=== PATIENT | female | born 1995 | race Caucasian/White ===

== ENCOUNTER 2021-01-25 18:40 | Emergency (ER) | payer MEDICAID, SELFPAY ==
[2021-01-25 18:41] VITALS: BP 123/82; PULSE 127; RESP 18; TEMP 37.4; O2SAT 100; BMI 20.5
--- NOTE | 2021-01-25 20:12 | EDS_ITS ---
HPI History of Present Illness Chief Complaint: Substance Abuse Detail of Chief Complaint: Requesting detox from methamphetamines Informant: patient Narrative Narrative: To the emergency department requesting detox from methamphetamines. Patient states she last used yesterday. Patient states that she also has used heroin in the past but not for the last month. Today she complains of diarrhea and feeling very anxious. Patient denies feeling suicidal. Patient states that she has contacted 180 however she feels that she needs inpatient detox. Patient also states there is a possibility she could be because her control is and has not had a period in 2 months. She has not taken a home test. Patient states she is been using methamphetamines since 2012. Patient typically smokes methamphetamines but does not use IV drugs. Prior similar symptoms: Yes PFSH [facility] Medical History (Updated 01/25/21 @ 21:[address] Thao Pavon, DO) Anxiety Hypoglycemia Manic depression Home Medications ibuprofen 600 mg PO Q6H PRN PRN #30 tablet 11/20/15 [Rx Last Taken Unknown] oxycodone 5 - 10 mg PO Q4H PRN PRN #14 tablet 11/20/15 [Rx Last Taken Unknown] docusate sodium [Colace] 100 mg PO BID #60 capsule 11/22/15 [Rx Last Taken Unknown] Allergy/AdvReac Type Severity Reaction Status Date / Time asparagus Allergy Hives Verified 01/25/21 18:41 avocado Allergy Hives Verified 01/25/21 18:41 Bleach (Sodium Hypochlorite) Allergy Hives Verified 01/25/21 18:41 gregorio Allergy Hives Verified 01/25/21 18:41 Social History Smoking Status: Current every day smoker tobacco type: cigarettes ROS ROS ED Constitutional Constitutional ED: Reports systems reviewed and no addt'l complaints, except as documented; Denies body ache(s), change in weight or chills Eyes Eyes: Denies acute decrease in peripheral vision, change in vision, double vision or loss of vision ENT ENT ED: Reports none; Denies ear pain, lip swelling, loss taste/smell, neck pain, otalgia or sore throat Cardiovascular Cardiovascular: Reports none; Denies abdominal pain, chest pain with activity, leg edema, lightheadedness, palpitations, rapid heart rate or syncope Respiratory/Chest Respiratory/Chest: Reports none; Denies change in mental status, dry cough, dyspnea, hemoptysis, shortness of breath at rest or shortness of breath with exertion Gastrointestinal Gastrointestinal: Reports none and diarrhea; Denies abdominal pain, change in stool character, hematemesis, hematochezia, melena, rectal bleeding or vomiting Genitourinary Genitourinary ED: Reports none; Denies abdominal discomfort, anuria, dysuria, genital pain or polyuria Musculoskeletal Musculoskeletal: Reports none; Denies arthralgias, back pain, difficulty walking, extremity pain, muscle weakness or myalgias Integumentary Reports none; Denies abscess or rash Neurologic Neurologic: Reports none; Denies abnormal gait, confusion, focal weakness, frequent falls, headache(s), loss of vision, numbness, paresthesias, radicular pain, vertigo or weakness Psychiatric Psychiatric: Reports systems reviewed and no addt'l complaints, except as documented, none and anxiety; Denies behavioral changes, confusion, difficulty concentrating, hallucinations, suicidal ideation, tactile hallucinations or visual hallucinations Endocrine Endocrinology: Denies none, cold intolerance, excessive sweating, fatigue or heat intolerance Hematologic/Lymphatic Hematologic/Lymphatic: Reports none; Denies anemia, easy bleeding or easy bruising Allergic/Immunologic Allergic/Immunologic ED: Denies as per HPI, none, lip swelling, mouth swelling, throat swelling, tongue swelling or hives EXAM Physical Exam Const Vital Signs: 01/25/21 18:41 Temperature 99.4 F H Temperature Source Temporal Pulse Rate 127 H Respiratory Rate 18 Blood Pressure 123/82 H Blood Pressure Mean 95 Pulse Ox 100 Oxygen Delivery Method Room Air Positive well nourished and well developed General Appearance ED: well developed and NAD HEENT Reports TM's clear and moist mucous membranes normocephalic and atraumatic; Negative for trauma or tenderness Tympanic Membrane ED: Yes TM's clear Eyes PERRL and EOMs intact bilaterally General Eye ED: Negative for pale conjunctiva or scleral icterus Neck no lymphadenopathy, supple and no JVD General: Negative for tenderness Chest Wall inspection of chest normal and palpation of chest normal Chest: Negative for tenderness Resp normal respiratory effort and clear to auscultation bilaterally Effort and Inspection: Negative for respiratory distress or pain with movement Auscultation: Negative for rhonchi, wheezes or diminished lung sounds Cardio regular rate, regular rhythm, S1 normal heart sound, S2 normal heart sound and no murmurs Peripheral Pulses: pulses 2+ throughout GI normal to inspection, nondistended, normoactive bowel sounds, soft to palpation, non-tender, non-distended and no masses Back/Spine no CVA tenderness and no thoracic nor lumbar tenderness Extremity normal to inspection General Extremety ED: Negative for edema General Extremity: Negative for edema Neuro oriented x3, CN's II-XII intact bilaterally, no sensory deficits noted and gait normal Sensorium / Orientation: awake, alert, oriented to person, oriented to place and oriented to time Motor Exam: strength 5/5 throughout and strength abnormal Psych mental status grossly normal Skin no rashes or lesions noted and no wounds MDM MDM MDM Narrative Medical decision making narrative: Patient positive for amphetamines on tox screen. She is not . I explained to her that we do not offer inpatient detox for amphetamines and she will need to go through [facility]. Patient will be discharged to home and advised to follow-up as an outpatient with [facility]. Lab Data Attestation: I reviewed the patient's lab results. Labs: Laboratory Results - last 24 hr 01/25/21 01/25/21 01/25/21 20:23 20:35 20:35 WBC 8.2 RBC 4.42 Hgb 13.9 Hct 42.9 MCV 97.1 MCH 31.4 MCHC 32.4 RDW Std Deviation 42.9 RDW Coeff of Reva 11.9 Plt Count 264 MPV 10.5 Immature Gran % (Auto) 0.100 Neut % (Auto) 60.8 Lymph % (Auto) 31.0 Wilson % (Auto) 5.4 Eos % (Auto) 2.0 Baso % (Auto) 0.7 Absolute Neuts (auto) 5.0 Absolute Lymphs (auto) 2.53 Nucleated RBC % 0 Sodium 141 Potassium 3.9 Chloride 108 H Carbon Dioxide 31.0 Anion Gap 2 L BUN 8 Creatinine 0.90 Estim Creat Clear Calc 88.34 Est GFR (MDRD) Af Amer 96 Est GFR (MDRD) Non-Af 80 BUN/Creatinine Ratio 8.9 L Glucose 78 Calcium 8.8 Serum , Qual Urine Opiates Screen NEGATIVE Urine Methadone Screen NEGATIVE Ur Barbiturates Screen NEGATIVE Ur Phencyclidine Scrn NEGATIVE Ur Amphetamines Screen POSITIVE H U Methamphetamin-MDMA POSITIVE H U Benzodiazepines Scrn NEGATIVE Urine Cocaine Screen NEGATIVE U Cannabinoids Screen NEGATIVE Ur Drug Screen Comment Ethyl Alcohol 09/08/21 09/08/21 20:35 20:35 WBC RBC Hgb Hct MCV MCH MCHC RDW Std Deviation RDW Coeff of Reva Plt Count MPV Immature Gran % (Auto) Neut % (Auto) Lymph % (Auto) Wilson % (Auto) Eos % (Auto) Baso % (Auto) Absolute Neuts (auto) Absolute Lymphs (auto) Nucleated RBC % Sodium Potassium Chloride Carbon Dioxide Anion Gap BUN Creatinine Estim Creat Clear Calc Est GFR (MDRD) Af Amer Est GFR (MDRD) Non-Af BUN/Creatinine Ratio Glucose Calcium Serum , Qual NEGATIVE Urine Opiates Screen Urine Methadone Screen Ur Barbiturates Screen Ur Phencyclidine Scrn Ur Amphetamines Screen U Methamphetamin-MDMA U Benzodiazepines Scrn Urine Cocaine Screen U Cannabinoids Screen Ur Drug Screen Comment Ethyl Alcohol < 3.0 Discharge Plan Triage Chief Complaint: Substance Abuse ED Provider: Thao Pavon Dx/Rx/DC Orders Clinical Impression: Methamphetamine abuse Instructions: Understanding Methamphetamine ..., ED Drug Abuse Prescriptions: No Action oxycodone 5 MG tablet 5 - 10 mg PO Q4H PRN PRN (Reason: Moderate Pain (4-5/10)) Qty: 14 RF: 0 ibuprofen 600 MG tablet 600 mg PO Q6H PRN PRN (Reason: pain or cramping) Qty: 30 RF: 1 docusate sodium [DOK] 100 MG capsule 100 mg PO BID Qty: 60 RF: 0 Primary Care Provider: Care Physician,No Primary Referrals: Care Physician,No Primary [Primary Care Provider] - [facility] [STAFF PHYSICIAN] - 1 Day Disposition Disposition: Home, Self Care
[2021-01-25 20:54] LABS: Absolute Lymphocyte Count 2.53 X10^3/uL (0.83-4.51); Basophil# 0.06 X10^3/uL; Basophil% 0.7 % (0-1); Eosinophil# 0.16 X10^3/uL; Hematocrit 42.9 % (37-47); Hemoglobin 13.9 g/dL (12.0-15.0); Lymphocyte # 2.53 X10^3/ul (0.83-4.51); Mean Corp Hgb Conc 32.4 g/dL (32-36); Mean Corpuscular Hgb 31.4 pg (27.0-32.0); Mean Corpuscular Volume 97.1 fL (81-99); Mean Platelet Vol. 10.5 fl (6.2-12.0); Monocyte# 0.44 X10^3/uL; Monocyte% 5.4 % (0-10); NRBC Flagged by Analyzer 0 % (0-5); Neutrophil # 4.95 X10^3/uL (2.7-7.7); Neutrophil % 60.8 % (47-70); Platelet Count 264 K/mm3 (150-450); RBC Distribution Width CV 11.9 % (11.6-14.6); RBC Distribution Width SD 42.9 fl (35.1-43.9); Red Blood Count 4.42 M/mm3 (4.2-5.4); White Blood Count 8.2 K/mm3 (4.4-11.0)
[2021-01-25 21:06] LABS: Internal QC Validated? YES +Cl - CLEAR BKGD; Pregnancy, Serum, hCG Quali. NEGATIVE Negative
[2021-01-25 21:10] LABS: Alcohol, Blood (Medical)-Serum < 3.0 mg/dL
[2021-01-25 21:12] LABS: Anion Gap 2 (5-15); BUN 8 mg/dL (7-18); BUN/Creat Ratio 8.9 RATIO (10-20); Calcium,Total 8.8 mg/dL (8.5-10.1); Chloride 108 mmol/L (98-107); EST Glomerular Filtration Rate 80 mL/min (>60); Est Glom Filt Rate - Afr Amer 96 mL/min (>60); Estimated Creatinine Clearance 88.34 ml/min; Glucose 78 mg/dL (74-106); Potassium 3.9 mmol/L (3.5-5.1); Sodium Level 141 mmol/L (136-145)
[2021-01-25 21:14] LABS: Amphetamine Urine VISTA POSITIVE (<1000 ng/mL); Barbiturate Urine VISTA NEGATIVE (< 200 ng/mL); Benzodiazepine Urine VISTA NEGATIVE (< 200 ng/mL); Cocaine Urine VISTA NEGATIVE (< 300 ng/mL); Ecstacy Urine VISTA POSITIVE (< 500 ng/mL); Methadone Urine VISTA NEGATIVE (< 300 ng/mL); PCP Urine VISTA NEGATIVE (< 25 ng/mL); THC Urine VISTA NEGATIVE (< 50 ng/mL); Vista UDS pH Range 6
== END 2021-01-25 21:35 | disposition home or self-care (01) ==
PROVIDERS: Emergency Provider Emergency Medicine
DX: F15.10 Other stimulant abuse, uncomplicated (principal); F17.210 Nicotine dependence, cigarettes, uncomplicated
CPT/HCPCS: 80048; 80307; 82077; 84703; 85025; 99282

== ENCOUNTER → 2021-03-21 | Outpatient (CLI) | payer MEDICAID, SELFPAY ==
[2021-03-28 16:26] LABS: HPV Reflexed? NOT INDICATED
== END | disposition home or self-care (01) ==
LOC: LABSPEC 13:48
PROVIDERS: Visit Provider Obstetrics & Gynecology
DX: Z12.4 Encounter for screening for malignant neoplasm of cervix (principal)
CPT/HCPCS: 88175; G0145

== ENCOUNTER → 2021-05-04 | Outpatient (CLI) | payer MEDICAID, SELFPAY ==
--- NOTE | 2021-05-04 | IMM_PTH ---
PATIENT: BOO VOGEL LOC: [facility] U#:[id number] AGE/SX: 25/F ROOM: RE05/04/[address]: Dr. Mayur Edward MD : 1995 BED: DIS: 05/04/2021 SPEC #: [id number] RECD: 05/08/21 14:45 STATUS: RALPH REQ #: [id number] STELLA: 05/04/21 00:[address]: Mayur Edward DEPT: IMMUNOHISTOCHEMISTRY RECD BY: Lyubov Bradley ENTERED: 05/08/21 14:46 SP TYPE: IMMUNO OT DR: No Primary Care Phys Tissues: A - Uterine cervix, NOS Procedures: p16 (initial) KI-67 (add) PHYSICIAN & INSTITUTION [place] [id number] SPECIMEN INFORMATION: Tissue Source: A ? Cervix, biopsy Clinical Info: LGSIL, mild dysplasia Specimen Number: [id number] CPT code: 46136, 93518 METHODOLOGY: Deparaffinized sections of prefer/formalin-fixed tissue or PAP/DQ stained slides are incubated with monoclonal/polyclonal antibodies/oligonucleotide probes. Localization is made via biotin free immunoperoxidase method. Appropriate controls are performed and reacted as expected. Results on target cell population are indicated in the following table: RESULTS: ANTIBODY / CLONE RESULT Block A P16 (E6H4) positive, focal, patchy Ki-67 (30-9) positive, low These tests were developed and their performance characteristics determined by [facility]. They may not have been cleared or approved by the U.S. Food and Drug Administration. The FDA has determined that such clearance or approval is not necessary. The above immunohistochemical/dualISH markers are ordered and reviewed by the Pathologist. INTERPRETATION: A. Cervix, biopsy: Consistent with focal HPV change. AM:checo 05/09/2021
--- NOTE | 2021-05-04 | CER_PTH ---
PATIENT: BOO VOGEL [facility]: [facility] U#:[id number] AGE/SX: 25/F ROOM: RE05/04/[address]: Dr. Mayur Edward MD : 1995 BED: DIS: 05/04/2021 SPEC #: [id number] RECD: 05/05/21 10:21 STATUS: RALPH REDarrin #: [id number] STELLA: 05/04/21 00:[address]: Mayur Edward DEPT: SURGICAL PATHOLOGY RECD BY: Arsalan Mata ENTERED: 05/05/21 10:21 SP TYPE: CERV OT DR: No Primary Care Phys Tissues: A - Uterine cervix, NOS B - Endocervical Procedures: Surgery Specimen Level IV HEADER OPERATION: Colposcopy PRE-OP DIAGNOSIS: LGSIL, mild dysplasia TISSUE SUBMITTED: A ? Cervical biopsy 1, 5, 7, 11 o?clock, B - ECC MICROSCOPIC DIAGNOSIS A. Cervix, biopsy: Focal HPV change suspected. See comment. BJean-Pierre Endocervix, curettings: Scant strips of benign superficial endocervix with squamous metaplasia and mild chronic inflammation. No evidence of dysplasia. AM:checo 05/08/2021 COMMENT A. Results from immunohistochemistry ([id number]) for surrogate HPV marker (p16) will be reported separately. MICROSCOPIC DESCRIPTION Slides are reviewed. GROSS DESCRIPTION A - Received in fixative is one container labeled with the patient's name and designated cervical biopsy. The specimen consists of multiple irregular fragments of light lozano soft tissue that in aggregate measure 1 x 0.5 x <0.1 cm. The specimen is totally submitted in one cassette. B - Received in fixative is one container labeled with the patient's name and designated ECC. The specimen consists of light lozano mucoid material aggregating to 1 x 1 x <0.1 cm. The specimen is totally submitted in one cassette. / AM:checo 05/05/21 TC:5 CPT: 48262 x2
== END | disposition home or self-care (01) ==
LOC: LABSPEC 11:51
PROVIDERS: Visit Provider Obstetrics & Gynecology
DX: N87.0 Mild cervical dysplasia (principal)
CPT/HCPCS: 88305; 88341; 88342

== ENCOUNTER 2021-06-21 14:57 | Emergency (ER) | payer MEDICAID, SELFPAY ==
[2021-06-21 14:58] VITALS: BP 106/73; PULSE 118; RESP 16; TEMP 38.1; O2SAT 97; BMI 21.4
[2021-06-21 15:04] VITALS: BP 106/73; PULSE 124; RESP 16; TEMP 38.2; O2SAT 98
--- NOTE | 2021-06-21 15:08 | CT_ITS ---
STUDY: CT ABDOMEN AND PELVIS WITHOUT CONTRAST REASON FOR EXAM: Female, 25 years old. Pain RADIATION DOSAGE (If Supplied By Facility): CTDIvol = ( 6.04 ) mGy, DLP = ( 305.04 ) mGycm TECHNIQUE: Transaxial images were obtained from the dome of the diaphragm to the symphysis pubis without oral contrast, and without intravenous contrast. Sagittal and coronal images were reconstructed. Individualized dose optimization techniques were used for this CT. COMPARISON: None. FINDINGS: Reticulonodular interstitial thickening in both lower lobes.. The visualized portions of the heart are within normal limits. Normal liver. Contracted thick-walled gallbladder without calcified stones possibly physiologic. If concern for gallbladder disease ultrasound recommended Normal spleen. Normal pancreas. Normal bilateral adrenal glands. Normal right kidney. Normal left kidney. Normal visualized stomach. Nonspecific ileus with diffuse fecal retention in colon. No evidence for small bowel obstruction.. No evidence for acute appendicitis. Normal abdominal aorta. Normal inferior vena cava. Normal retroperitoneum. Normal urinary bladder. Normal abdominal wall. Normal osseous structures. CT/Abdomen/Pelvis without Cont IMPRESSION: Nonspecific ileus with diffuse fecal retention in colon. Contracted thick-walled gallbladder without calcified stones likely physiologic. If concern for gallbladder disease ultrasound recommended. Electronically Signed: Hawk Carreno MD at 16:32 EST ,
--- NOTE | 2021-06-21 15:09 | EX.ED.DYSGE1 ---
HPI History of Present Illness Chief Complaint: Abd Pain Detail of Chief Complaint: Right flank pain that started 3 days ago Informant: patient Onset/Context/Timing Current Severity: 02/26 Narrative Narrative: Patient presents to the emergency department complaint of right\flank pain that started 3 days ago. Pain became more severe yesterday. Patient's had a low-grade temp subjectively at home. She denies dysuria, urgency, or frequency. She is never had pain like this before. Patient states that she was supposed to have a menstrual period at the end of last month but has not had one yet. She has not taken home test. She denies abnormal vaginal bleeding. She denies any trauma to her back. Patient denies illicit drug use. Currently rates her pain out of 10 and presented via EMS. Prior similar symptoms: No PFSH PFSH Medical History (Updated 06/21/21 @ 18:[address] Thao Pavon, ) Anxiety Hypoglycemia Manic depression Home Medications ibuprofen 600 mg PO Q6H PRN PRN #30 tablet 11/20/15 [Rx Last Taken Unknown] oxycodone 5 - 10 mg PO Q4H PRN PRN #14 tablet 11/20/15 [Rx Last Taken Unknown] docusate sodium [Colace] 100 mg PO BID #60 capsule 11/22/15 [Rx Last Taken Unknown] Allergy/AdvReac Type Severity Reaction Status Date / Time acetaminophen [From Vicodin] Allergy NEEDS Verified 06/21/21 15:09 FOLLOW-UP asparagus Allergy Hives Verified 01/25/21 18:41 avocado Allergy Hives Verified 01/25/21 18:41 Bleach (Sodium Hypochlorite) Allergy Hives Verified 01/25/21 18:41 hydrocodone [From Vicodin] Allergy NEEDS Verified 06/21/21 15:09 FOLLOW-UP gregorio Allergy Hives Verified 01/25/21 18:41 Social History Smoking Status: Current every day smoker tobacco type: cigarettes ROS ROS ED Constitutional Constitutional ED: Reports systems reviewed and no addt'l complaints, except as documented; Denies body ache(s), change in weight or chills Eyes Eyes: Denies acute decrease in peripheral vision, change in vision, double vision or loss of vision ENT ENT ED: Reports none; Denies ear pain, lip swelling, loss taste/smell, neck pain, otalgia or sore throat Cardiovascular Cardiovascular: Reports none; Denies abdominal pain, chest pain with activity, leg edema, lightheadedness, palpitations, rapid heart rate or syncope Respiratory/Chest Respiratory/Chest: Reports none; Denies change in mental status, dry cough, dyspnea, hemoptysis, shortness of breath at rest or shortness of breath with exertion Gastrointestinal Gastrointestinal: Reports none, nausea and vomiting; Denies abdominal pain, change in stool character, diarrhea, hematemesis, hematochezia, melena or rectal bleeding Genitourinary Genitourinary ED: Reports none; Denies abdominal discomfort, anuria, dysuria, genital pain or polyuria Musculoskeletal Musculoskeletal: Reports none and back pain; Denies arthralgias, difficulty walking, extremity pain, muscle weakness or myalgias Integumentary Reports none; Denies abscess or rash Neurologic Neurologic: Reports none; Denies abnormal gait, confusion, focal weakness, frequent falls, headache(s), loss of vision, numbness, paresthesias, radicular pain, vertigo or weakness Psychiatric Psychiatric: Reports systems reviewed and no addt'l complaints, except as documented and none; Denies behavioral changes, confusion, difficulty concentrating, hallucinations, suicidal ideation, tactile hallucinations or visual hallucinations Endocrine Endocrinology: Denies none, cold intolerance, excessive sweating, fatigue or heat intolerance Hematologic/Lymphatic Hematologic/Lymphatic: Reports none; Denies anemia, easy bleeding or easy bruising Allergic/Immunologic Allergic/Immunologic ED: Denies as per HPI, none, lip swelling, mouth swelling, throat swelling, tongue swelling or hives EXAM Physical Exam Narrative Exam Narrative: Patient writhing around in bed and discomfort. Patient appears quite uncomfortable. Const Vital Signs: 06/21/21 14:58 06/21/21 15:04 06/21/21 17:27 Temperature 100.6 F H 100.8 F H Temperature Source Temporal Temporal Pulse Rate 118 H 124 H 88 Respiratory Rate 16 16 16 Blood Pressure 106/73 106/73 107/73 Blood Pressure Mean 84 84 84 Pulse Ox 97 98 99 Oxygen Delivery Method Room Air Nasal Cannula Room Air 06/21/21 18:33 Temperature Temperature Source Pulse Rate 78 Respiratory Rate 16 Blood Pressure 186/71 H Blood Pressure Mean 109 Pulse Ox 99 Oxygen Delivery Method Room Air Positive well nourished and well developed General Appearance ED: well developed and NAD HEENT Reports TM's clear and moist mucous membranes normocephalic and atraumatic; Negative for trauma or tenderness Tympanic Membrane ED: Yes TM's clear Eyes PERRL and EOMs intact bilaterally General Eye ED: Negative for pale conjunctiva or scleral icterus Neck no lymphadenopathy, supple and no JVD General: Negative for tenderness Chest Wall inspection of chest normal and palpation of chest normal Chest: Negative for tenderness Resp normal respiratory effort and clear to auscultation bilaterally Effort and Inspection: Negative for respiratory distress or pain with movement Auscultation: Negative for rhonchi, wheezes or diminished lung sounds Cardio regular rate, regular rhythm, S1 normal heart sound, S2 normal heart sound and no murmurs Peripheral Pulses: pulses 2+ throughout GI soft to palpation, non-tender, non-distended and no masses GI Narrative: Patient has tenderness to palpation over the right lower quadrant and right lower pelvis with some guarding. There is no rebound, rigidity, or peritoneal signs. Back/Spine no thoracic nor lumbar tenderness Back/Spine Narrative: Patient was CVA tenderness on the right. Extremity normal to inspection General Extremety ED: Negative for edema General Extremity: Negative for edema Neuro oriented x3, CN's II-XII intact bilaterally, no sensory deficits noted and gait normal Sensorium / Orientation: awake, alert, oriented to person, oriented to place and oriented to time Motor Exam: strength 5/5 throughout and strength abnormal Psych mental status grossly normal Skin no rashes or lesions noted and no wounds MDM MDM MDM Narrative Medical decision making narrative: IV line established on arrival. Patient was given Toradol for pain. Patient lab work was unremarkable. She was positive for COVID-19. hCG was negative. CT scan of the abdomen pelvis was unremarkable without evidence of kidney stones or appendicitis. Toxicology screen positive for amphetamines and methamphetamines as well as marijuana. Patient advised to quarantine for 10 days from symptom onset. Patient advised to return if increasing shortness of breath or conditions worsen anyway. Patient to use ibuprofen or Tylenol for discomfort. Lab Data Attestation: I reviewed the patient's lab results. Labs: Laboratory Results - last 24 hr 06/21/21 06/21/21 06/21/21 15:05 15:05 15:05 WBC 3.7 L RBC 4.31 Hgb 13.7 Hct 40.2 MCV 93.3 MCH 31.8 MCHC 34.1 RDW Std Deviation 41.4 RDW Coeff of Reva 11.9 Plt Count 211 MPV 10.3 Immature Gran % (Auto) 0.500 Neut % (Auto) 62.0 Lymph % (Auto) 17.8 L [place] % (Auto) 18.6 H Eos % (Auto) 0.8 Baso % (Auto) 0.3 Absolute Neuts (auto) 2.3 Absolute Lymphs (auto) 0.65 L Nucleated RBC % 0 Sodium 135 L Potassium 3.8 Chloride 102 Carbon Dioxide 26.0 Anion Gap 7 BUN 9 Creatinine 0.92 Estim Creat Clear Calc 89.32 Est GFR (MDRD) Af Amer 94 Est GFR (MDRD) Non-Af 77 BUN/Creatinine Ratio 9.8 L Glucose 108 H Lactic Acid Calcium 8.6 Total Bilirubin 0.30 AST 14 L ALT 19 Alkaline Phosphatase 54 Total Protein 7.4 Albumin 3.4 Globulin 4.0 Albumin/Globulin Ratio 0.8 L Serum , Qual NEGATIVE Urine Color Urine Clarity Urine pH Ur Specific [place] Urine Protein Urine Glucose (UA) Urine Ketones Urine Occult Blood Urine Nitrite Urine Bilirubin Urine Urobilinogen Ur Leukocyte Esterase Urine RBC Urine WBC Ur Squamous Epith Cells Amorphous Sediment Urine Bacteria Hyaline Casts Urine Mucus Urine Opiates Screen Urine Methadone Screen Ur Barbiturates Screen Ur Phencyclidine Scrn Ur Amphetamines Screen U Methamphetamin-MDMA U Benzodiazepines Scrn Urine Cocaine Screen U Cannabinoids Screen Ur Drug Screen Comment 06/21/21 06/21/21 06/21/21 15:40 16:45 16:45 WBC RBC Hgb Hct MCV MCH MCHC RDW Std Deviation RDW Coeff of Reva Plt Count MPV Immature Gran % (Auto) Neut % (Auto) Lymph % (Auto) [place] % (Auto) Eos % (Auto) Baso % (Auto) Absolute Neuts (auto) Absolute Lymphs (auto) Nucleated RBC % Sodium Potassium Chloride Carbon Dioxide Anion Gap BUN Creatinine Estim Creat Clear Calc Est GFR (MDRD) Af Amer Est GFR (MDRD) Non-Af BUN/Creatinine Ratio Glucose Lactic Acid 1.3 Calcium Total Bilirubin AST ALT Alkaline Phosphatase Total Protein Albumin Globulin Albumin/Globulin Ratio Serum , Qual Urine Color Yellow Urine Clarity Sl Cldy Urine pH 5.0 Ur Specific [place] 1.030 Urine Protein 15 H Urine Glucose (UA) NEGATIVE Urine Ketones 5 H Urine Occult Blood 10 H Urine Nitrite Negative Urine Bilirubin Negative Urine Urobilinogen Normal Ur Leukocyte Esterase 25 H Urine RBC 0 SEEN Urine WBC 0 SEEN Ur Squamous Epith Cells 0-5 SEEN Amorphous Sediment 1+ URATE Urine Bacteria 0 SEEN Hyaline Casts 0-5 SEEN Urine Mucus RARE Urine Opiates Screen NEGATIVE Urine Methadone Screen NEGATIVE Ur Barbiturates Screen NEGATIVE Ur Phencyclidine Scrn NEGATIVE Ur Amphetamines Screen POSITIVE H U Methamphetamin-MDMA POSITIVE H U Benzodiazepines Scrn NEGATIVE Urine Cocaine Screen NEGATIVE U Cannabinoids Screen POSITIVE H Ur Drug Screen Comment Radiography Diagnostic Testing: Clinical Impression(s) from Imaging Studies Abdomen/Pelvis CT 06/21/21 15:08 IMPRESSION: Nonspecific ileus with diffuse fecal retention in colon. Contracted thick-walled gallbladder without calcified stones likely physiologic. If concern for gallbladder disease ultrasound recommended. Electronically Signed: Hawk Carreno MD at 16:32 EST Reading Location ID and State: [address] [place] [address] , Service support , Discharge Plan Triage Chief Complaint: Abd Pain ED Provider: Thao Pavon Dx/Rx/DC Orders Clinical Impression: Back pain, COVID-19 Instructions: ED Back Pain (Acute or Chronic), Caring for Someone Who Has COVID-19 Prescriptions: No Action oxycodone 5 MG tablet 5 - 10 mg PO Q4H PRN PRN (Reason: Moderate Pain (4-5/10)) Qty: 14 RF: 0 ibuprofen 600 MG tablet 600 mg PO Q6H PRN PRN (Reason: pain or cramping) Qty: 30 RF: 1 docusate sodium [DOK] 100 MG capsule 100 mg PO BID Qty: 60 RF: 0 Primary Care Provider: Care Physician,No Primary Referrals: Sanket Rhoades MD [STAFF PHYSICIAN] - 5-7 Days Care Physician,No Primary [Primary Care Provider] - Disposition Disposition: Home, Self Care
[2021-06-21 15:16] LABS: Absolute Lymphocyte Count 0.65 X10^3/uL (0.83-4.51); Absolute Neutrophil Count 2.3 X10^3/uL (2.0-7.7); Basophil# 0.01 X10^3/uL; Basophil% 0.3 % (0-1); Eosinophil# 0.03 X10^3/uL; Eosinophils% 0.8 % (0-5); Hematocrit 40.2 % (37-47); Hemoglobin 13.7 g/dL (12.0-15.0); Lymphocyte # 0.65 X10^3/ul (0.83-4.51); Lymphocyte % 17.8 % (19-41); Mean Corp Hgb Conc 34.1 g/dL (32-36); Mean Corpuscular Hgb 31.8 pg (27.0-32.0); Mean Corpuscular Volume 93.3 fL (81-99); Mean Platelet Vol. 10.3 fl (6.2-12.0); Monocyte# 0.68 X10^3/uL; Monocyte% 18.6 % (0-10); NRBC Flagged by Analyzer 0 % (0-5); Neutrophil # 2.27 X10^3/uL (2.7-7.7); Platelet Count 211 K/mm3 (150-450); RBC Distribution Width CV 11.9 % (11.6-14.6); RBC Distribution Width SD 41.4 fl (35.1-43.9); Red Blood Count 4.31 M/mm3 (4.2-5.4); White Blood Count 3.7 K/mm3 (4.4-11.0)
[2021-06-21] MEDS: 0.9% Normal Saline 1,000 ML 125 ML IV (15:20)
[2021-06-21] MEDS: Ketorolac 15 MG/ML Vial IV (15:21)
[2021-06-21] MEDS: Ondansetron 4 MG/2 ML Vial IV (15:21)
[2021-06-21 15:32] LABS: ALB/GLOB Ratio 0.8 RATIO (0.9-2.4); AST(SGOT) 14 U/L (15-37); Alanine Aminotransfer ALT/SGPT 19 U/L (13-56); Albumin, Serum 3.4 g/dL (3.2-5.0); Alkaline Phosphatase 54 U/L (45-117); Anion Gap 7 (5-15); BUN 9 mg/dL (7-18); BUN/Creat Ratio 9.8 RATIO (10-20); Calcium,Total 8.6 mg/dL (8.5-10.1); Chloride 102 mmol/L (98-107); Creatinine, Serum 0.92 mg/dL (0.55-1.02); EST Glomerular Filtration Rate 77 mL/min (>60); Est Glom Filt Rate - Afr Amer 94 mL/min (>60); Estimated Creatinine Clearance 89.32 ml/min; Glucose 108 mg/dL (74-106); Potassium 3.8 mmol/L (3.5-5.1); Protein, Total 7.4 g/dL (6.4-8.2); Sodium Level 135 mmol/L (136-145)
[2021-06-21 16:05] LABS: Internal QC Validated? YES +Cl - CLEAR BKGD; Pregnancy, Serum, hCG Quali. NEGATIVE Negative
[2021-06-21 16:28] LABS: Lactic Acid 1.3 mmol/L (0.4-1.9)
--- NOTE | 2021-06-21 16:45 | ED.RN ---
AT 1635, VINCENT RN AT BEDSIDE TO ASK PT FOR A URINE SAMPLE. PT MINIMALLY RESPONSIVE, DOES NOT RESPOND TO VERBAL CALLING OR RUBBING ARMS. RESPIRES EVEN AND UNLABORED. PT DOES NOT RESPOND WITH ALCOHOL SWAB PLACED IN FRONT OF NOSE. PT STERNAL RUBBED. EYES FLUTTER OPEN AND THEN PT RETURNS TO SLEEPING. PT STERNAL RUBBED AGAIN. PT AWAKE REPORTS, DON'T FUCKING DO THAT, THAT HURTS. THIS RN EDUCATING PT THAT SHE WAS NOT RESPONDING TO TOUCH OR VERBAL COMMANDS. PT NOW A+OX4. AMBULATES TO BATHROOM FOR URINE SAMPLE.
[2021-06-21 16:50] LABS: Bacteria 0 SEEN /hpf (None Seen); Red Blood Cells-Urine 0 SEEN /hpf (0-5); White Blood Cells 0 SEEN /hpf (0-5)
[2021-06-21 17:10] LABS: Amphetamine Urine VISTA POSITIVE (<1000 ng/mL); Barbiturate Urine VISTA NEGATIVE (< 200 ng/mL); Benzodiazepine Urine VISTA NEGATIVE (< 200 ng/mL); Cocaine Urine VISTA NEGATIVE (< 300 ng/mL); Ecstacy Urine VISTA POSITIVE (< 500 ng/mL); Methadone Urine VISTA NEGATIVE (< 300 ng/mL); PCP Urine VISTA NEGATIVE (< 25 ng/mL); THC Urine VISTA POSITIVE (< 50 ng/mL); Vista UDS pH Range 6
[2021-06-21 17:27] VITALS: BP 107/73; PULSE 88; RESP 16; O2SAT 99
[2021-06-21 17:33] LABS: Color, Urine Yellow (Yellow); Glucose, Dipstick NEGATIVE (Normal); Ketone-Dipstick 5 mg/dl (Negative); Urine Bilirubin Dipstick Negative (Negative); Urine Clarity Sl Cldy (Clear)
[2021-06-21 17:34] LABS: Amorphous Sediment 1+ URATE; Hyaline Cast 0-5 SEEN /lpf (0-5); Leukocyte Esterase-Dipstick 25 /ul (Negative); Mucous, Urine RARE /hpf (<or=2+); Nitrite-Dipstick Negative (Negative); Occult Blood-Urine 10 /ul (Negative); Protein-Dipstick 15 mg/dl (Negative); Squamous Epithelial Cells - UA 0-5 SEEN /hpf (5-10); Urine Urobilinogen Normal (Normal)
[2021-06-21 18:33] VITALS: BP 186/71; PULSE 78; RESP 16; O2SAT 99
--- NOTE | 2021-06-21 19:41 | ED.RN ---
Pt ready to be discharged, awakens to verbal stimuli. Lockstitch Zipper Setter notified of patient disposition and arrival in approx 15 minutes. Notified Rupali Padron motor coach driver, at 1940.
[2021-06-21 19:43] VITALS: BP 107/75; PULSE 84
== END 2021-06-21 20:35 | disposition home or self-care (01) ==
PROVIDERS: Emergency Provider Emergency Medicine; Visit Provider Emergency Medicine
DX: U07.1 COVID-19 (principal); M54.9 Dorsalgia, unspecified; F17.210 Nicotine dependence, cigarettes, uncomplicated
CPT/HCPCS: 74176; 80053; 80307; 81001; 83605; 84703; 85025; 87040; 87426; 96361; 96374; 96375; 99284; J7030; A4216; J2405

== ENCOUNTER 2021-06-24 12:28 | Emergency (ER) | payer MEDICAID, SELFPAY ==
[2021-06-24] VITALS (8 sets, daily range): BP systolic 130–132; BP diastolic 74–87; PULSE 22–119; RESP 16–18; TEMP 36.2–36.3; O2SAT 98–100; BMI 20.7
--- NOTE | 2021-06-24 12:59 | EDS_ITS ---
HPI <RG Stevenson - Last Filed: 06/24/21 20:42> HPI - Psych History of Present Illness Chief Complaint: Mental Health Narrative Narrative: 25 year old female with PMH of anxiety/depression, PTSD presents with suicidal ideation. She states her mom is admitted here at [facility]. She spoke with her on the phone this morning and told her she was took 4 Tylenol PM for her migraines. She has a long history of daily migraines. Mom called PD stating the patient said she was going to kill herself and took 16 Tylenol PM. PD had to break down the door to get into the bathroom she was inside and found her sitting with a suicide note left for her children. PFSH <RG Stevenson - Last Filed: 06/24/21 20:42> PFSH Medical History Anxiety Hypoglycemia Manic depression Home Medications NK 06/24/21 [History Last Taken Unknown] Allergy/AdvReac Type Severity Reaction Status Date / Time acetaminophen [From Vicodin] Allergy NEEDS Verified 06/24/21 12:33 FOLLOW-UP asparagus Allergy Hives Verified 06/24/21 12:33 avocado Allergy Hives Verified 06/24/21 12:33 Bleach (Sodium Hypochlorite) Allergy Hives Verified 06/24/21 12:33 hydrocodone [From Vicodin] Allergy NEEDS Verified 06/24/21 12:33 FOLLOW-UP gregorio Allergy Hives Verified 06/24/21 12:33 Social History Smoking Status: Current every day smoker tobacco type: cigarettes ROS <RG Stevenson - Last Filed: 06/24/21 20:42> ROS ED ROS Narrative Constitutional: Negative for fever, chills, malaise. Eyes: Negative for visual change. ENT: Negative for sore throat, ear pain, rhinorrhea. CVS: Negative for palpitations, chest pain, syncope. Respiratory: Negative for shortness of breath, cough, orthopnea. GI: Negative for abdominal pain, nausea, vomiting, diarrhea, constipation, melena, hematochezia. : Negative for dysuria, hematuria or frequency. Neuro: Negative for headache, motor/sensory dysfunction. Skin: Negative for rash, abscess, or wound. Heme: Negative for easy bruising, bleeding, lymphadenopathy. EXAM <RG Stevenson - Last Filed: 06/24/21 20:42> Physical Exam Narrative Exam Narrative: CONST: Patient sitting in no acute distress. EYES: Normal inspection. ENT: Normal inspection, moist mucous membranes. NECK: Normal inspection. RESP: No respiratory distress, CTAB. CVS: Regular rate and rhythm, no murmur, no gallop. ABD: Soft and nontender, no guarding or rebound, nondistended. Back: Normal inspection, no CVA tenderness. SKIN: Color normal, no rash, warm, dry, intact. EXTREMITIES: Normal appearance, no pedal edema. NEURO: Oriented x4. PSYCH: Normal affect, cooperative. Const Vital Signs: 06/24/21 12:30 06/24/21 14:07 06/24/21 15:00 Temperature 97.1 F L Temperature Source Temporal Pulse Rate 119 H 22 L Respiratory Rate 16 16 Blood Pressure 130/87 H Blood Pressure Mean 101 Pulse Ox 100 Oxygen Delivery Method Room Air Room Air 06/24/21 16:00 06/24/21 17:00 06/24/21 19:34 Temperature Temperature Source Pulse Rate Respiratory Rate 18 18 17 Blood Pressure Blood Pressure Mean Pulse Ox Oxygen Delivery Method <Dr. Andrew Villagran DO - Last Filed: 06/24/21 21:02> Physical Exam Const Vital Signs: 06/24/21 12:30 06/24/21 14:07 06/24/21 15:00 Temperature 97.1 F L Temperature Source Temporal Pulse Rate 119 H 22 L Respiratory Rate 16 16 Blood Pressure 130/87 H Blood Pressure Mean 101 Pulse Ox 100 Oxygen Delivery Method Room Air Room Air 06/24/21 16:00 06/24/21 17:00 06/24/21 19:34 Temperature Temperature Source Pulse Rate Respiratory Rate 18 18 17 Blood Pressure Blood Pressure Mean Pulse Ox Oxygen Delivery Method MDM <RG Stevenson - Last Filed: 06/24/21 20:42> [facility] Narrative Medical decision making narrative: Patient presents with suicidal ideation. She took Tylenol PM this morning and left a suicide note and was brought in by PD. She appears well nontoxic. Vital signs are within normal limits. She was alert and cooperative and her medical exam is unremarkable. CBC is unremarkable, BMP showed mild hypokalemia of 3.2. She was given oral potassium replacement. Initial Tylenol and salicylate levels are negative and will be trended in 4 hours. Repeat tylenol levels are negative. Urine tox screen is positive for amphetamines, meth, and THC. Alcohol level is negative. Patient did test positive for COVID-19 today but is asymptomatic. She did become more agitated and was given oral Geodon. Case was discussed with social work with plans to transfer her to psychiatric facility for further treatment of suicidal ideation. At this time she is medically cleared for transfer to a psych facility. Diagnoses 1. Suicidal ideation 2. Polysubstance abuse 3. Hypokalemia Lab Data Labs: Laboratory Results - last 24 hr 06/24/21 06/24/21 06/24/21 13:00 13:00 13:00 WBC 10.0 RBC 4.35 Hgb 13.3 Hct 40.7 MCV 93.6 MCH 30.6 MCHC 32.7 RDW Std Deviation 41.1 RDW Coeff of Reva 11.9 Plt Count 223 MPV 10.1 Immature Gran % (Auto) 0.400 Neut % (Auto) 75.1 H Lymph % (Auto) 18.2 L [place] % (Auto) 5.9 Eos % (Auto) 0.3 Baso % (Auto) 0.1 Absolute Neuts (auto) 7.5 Absolute Lymphs (auto) 1.82 Nucleated RBC % 0 Sodium Potassium Chloride Carbon Dioxide Anion Gap BUN Creatinine Estim Creat Clear Calc Est GFR (MDRD) Af Amer Est GFR (MDRD) Non-Af BUN/Creatinine Ratio Glucose Calcium Total Bilirubin AST ALT Alkaline Phosphatase Total Protein Albumin Globulin Albumin/Globulin Ratio Serum , Qual NEGATIVE Salicylates Urine Opiates Screen Urine Methadone Screen Acetaminophen Ur Barbiturates Screen Ur Phencyclidine Scrn Ur Amphetamines Screen U Methamphetamin-MDMA U Benzodiazepines Scrn Urine Cocaine Screen U Cannabinoids Screen Ur Drug Screen Comment Ethyl Alcohol 6.0 06/24/21 06/24/21 06/24/21 13:00 13:00 18:30 WBC RBC Hgb Hct MCV MCH MCHC RDW Std Deviation RDW Coeff of Reva Plt Count MPV Immature Gran % (Auto) Neut % (Auto) Lymph % (Auto) [place] % (Auto) Eos % (Auto) Baso % (Auto) Absolute Neuts (auto) Absolute Lymphs (auto) Nucleated RBC % Sodium 138 Potassium 3.2 L Chloride 103 Carbon Dioxide 30.0 Anion Gap 5 BUN 7 Creatinine 0.67 Estim Creat Clear Calc 119.47 Est GFR (MDRD) Af Amer 136 Est GFR (MDRD) Non-Af 112 BUN/Creatinine Ratio 10.5 Glucose 89 Calcium 8.7 Total Bilirubin 0.30 AST 23 ALT 24 Alkaline Phosphatase 61 Total Protein 8.0 Albumin 3.6 Globulin 4.4 H Albumin/Globulin Ratio 0.8 L Serum , Qual Salicylates < 1.7 L Urine Opiates Screen NEGATIVE Urine Methadone Screen NEGATIVE Acetaminophen < 2.0 L Ur Barbiturates Screen NEGATIVE Ur Phencyclidine Scrn NEGATIVE Ur Amphetamines Screen POSITIVE H U Methamphetamin-MDMA POSITIVE H U Benzodiazepines Scrn NEGATIVE Urine Cocaine Screen NEGATIVE U Cannabinoids Screen POSITIVE H Ur Drug Screen Comment Ethyl Alcohol 06/24/21 19:50 WBC RBC Hgb Hct MCV MCH MCHC RDW Std Deviation RDW Coeff of Reva Plt Count MPV Immature Gran % (Auto) Neut % (Auto) Lymph % (Auto) [place] % (Auto) Eos % (Auto) Baso % (Auto) Absolute Neuts (auto) Absolute Lymphs (auto) Nucleated RBC % Sodium Potassium Chloride Carbon Dioxide Anion Gap BUN Creatinine Estim Creat Clear Calc Est GFR (MDRD) Af Amer Est GFR (MDRD) Non-Af BUN/Creatinine Ratio Glucose Calcium Total Bilirubin AST ALT Alkaline Phosphatase Total Protein Albumin Globulin Albumin/Globulin Ratio Serum , Qual Salicylates Urine Opiates Screen Urine Methadone Screen Acetaminophen < 2.0 L Ur Barbiturates Screen Ur Phencyclidine Scrn Ur Amphetamines Screen U Methamphetamin-MDMA U Benzodiazepines Scrn Urine Cocaine Screen U Cannabinoids Screen Ur Drug Screen Comment Ethyl Alcohol <Dr. Andrew Villagran, DO - Last Filed: 06/24/21 21:02> [facility] MDM Narrative Medical decision making narrative: Patient was seen in conjunction with the PA. I agree with the work-up and evaluation. This is a 25-year-old female with history of suicidal ideation presenting with similar presentation. Initially she did denied suicidal ideation however her mother had called the police to come get her because she admitted that she wanted to overdose to her. Reportedly she took 16 Tylenol PM. Patient is currently awake and alert nontoxic-appearing. It was noted that she had COVID-19 diagnosed a couple of days ago and at that time she was lymphopenic and leukopenic. Her blood work today shows that her CBC is normal. And she is not absolutely lymphopenic. She had 2 - acetaminophen levels. Salicylates are normal. Urine drug screen is positive for amphetamines and methamphetamines. EtOH is negative. Renal function is normal however potassium is slightly low at 3.2 and this was replaced orally. Patient did actually leave a suicide note which is brought in by the Police Department. Given this and her history of believe she needs to be admitted to a facility. Since her work-up is ultimately normal. She did become agitated and did not want to stay. She was given oral Geodon because she refused a shot. Social work is currently planning to transfer her for psychiatric facility. Patient will be signed out to incoming ED physician for monitoring until this can occur. Diagnoses 1. Suicidal ideation 2. Polysubstance abuse 3. Hypokalemia Lab Data Attestation: I reviewed the patient's lab results. Labs: Laboratory Results - last 24 hr 06/24/21 06/24/21 06/24/21 13:00 13:00 13:00 WBC 10.0 RBC 4.35 Hgb 13.3 Hct 40.7 MCV 93.6 MCH 30.6 MCHC 32.7 RDW Std Deviation 41.1 RDW Coeff of Reva 11.9 Plt Count 223 MPV 10.1 Immature Gran % (Auto) 0.400 Neut % (Auto) 75.1 H Lymph % (Auto) 18.2 L [place] % (Auto) 5.9 Eos % (Auto) 0.3 Baso % (Auto) 0.1 Absolute Neuts (auto) 7.5 Absolute Lymphs (auto) 1.82 Nucleated RBC % 0 Sodium Potassium Chloride Carbon Dioxide Anion Gap BUN Creatinine Estim Creat Clear Calc Est GFR (MDRD) Af Amer Est GFR (MDRD) Non-Af BUN/Creatinine Ratio Glucose Calcium Total Bilirubin AST ALT Alkaline Phosphatase Total Protein Albumin Globulin Albumin/Globulin Ratio Serum , Qual NEGATIVE Salicylates Urine Opiates Screen Urine Methadone Screen Acetaminophen Ur Barbiturates Screen Ur Phencyclidine Scrn Ur Amphetamines Screen U Methamphetamin-MDMA U Benzodiazepines Scrn Urine Cocaine Screen U Cannabinoids Screen Ur Drug Screen Comment Ethyl Alcohol 6.0 06/24/21 06/24/21 06/24/21 13:00 13:00 18:30 WBC RBC Hgb Hct MCV MCH MCHC RDW Std Deviation RDW Coeff of Reva Plt Count MPV Immature Gran % (Auto) Neut % (Auto) Lymph % (Auto) [place] % (Auto) Eos % (Auto) Baso % (Auto) Absolute Neuts (auto) Absolute Lymphs (auto) Nucleated RBC % Sodium 138 Potassium 3.2 L Chloride 103 Carbon Dioxide 30.0 Anion Gap 5 BUN 7 Creatinine 0.67 Estim Creat Clear Calc 119.47 Est GFR (MDRD) Af Amer 136 Est GFR (MDRD) Non-Af 112 BUN/Creatinine Ratio 10.5 Glucose 89 Calcium 8.7 Total Bilirubin 0.30 AST 23 ALT 24 Alkaline Phosphatase 61 Total Protein 8.0 Albumin 3.6 Globulin 4.4 H Albumin/Globulin Ratio 0.8 L Serum , Qual Salicylates < 1.7 L Urine Opiates Screen NEGATIVE Urine Methadone Screen NEGATIVE Acetaminophen < 2.0 L Ur Barbiturates Screen NEGATIVE Ur Phencyclidine Scrn NEGATIVE Ur Amphetamines Screen POSITIVE H U Methamphetamin-MDMA POSITIVE H U Benzodiazepines Scrn NEGATIVE Urine Cocaine Screen NEGATIVE U Cannabinoids Screen POSITIVE H Ur Drug Screen Comment Ethyl Alcohol 06/24/21 19:50 WBC RBC Hgb Hct MCV MCH MCHC RDW Std Deviation RDW Coeff of Reva Plt Count MPV Immature Gran % (Auto) Neut % (Auto) Lymph % (Auto) [place] % (Auto) Eos % (Auto) Baso % (Auto) Absolute Neuts (auto) Absolute Lymphs (auto) Nucleated RBC % Sodium Potassium Chloride Carbon Dioxide Anion Gap BUN Creatinine Estim Creat Clear Calc Est GFR (MDRD) Af Amer Est GFR (MDRD) Non-Af BUN/Creatinine Ratio Glucose Calcium Total Bilirubin AST ALT Alkaline Phosphatase Total Protein Albumin Globulin Albumin/Globulin Ratio Serum , Qual Salicylates Urine Opiates Screen Urine Methadone Screen Acetaminophen < 2.0 L Ur Barbiturates Screen Ur Phencyclidine Scrn Ur Amphetamines Screen U Methamphetamin-MDMA U Benzodiazepines Scrn Urine Cocaine Screen U Cannabinoids Screen Ur Drug Screen Comment Ethyl Alcohol Discharge Plan Triage Chief Complaint: Mental Health ED Provider: Louise Steen Dx/Rx/DC Orders Prescriptions: No Action NK RF: 0 Primary Care Provider: Care Physician,No Primary
[2021-06-24 13:09] LABS: Absolute Lymphocyte Count 1.82 X10^3/uL (0.83-4.51); Absolute Neutrophil Count 7.5 X10^3/uL (2.0-7.7); Basophil# 0.01 X10^3/uL; Basophil% 0.1 % (0-1); Eosinophil# 0.03 X10^3/uL; Eosinophils% 0.3 % (0-5); Hematocrit 40.7 % (37-47); Hemoglobin 13.3 g/dL (12.0-15.0); Lymphocyte # 1.82 X10^3/ul (0.83-4.51); Lymphocyte % 18.2 % (19-41); Mean Corp Hgb Conc 32.7 g/dL (32-36); Mean Corpuscular Hgb 30.6 pg (27.0-32.0); Mean Corpuscular Volume 93.6 fL (81-99); Mean Platelet Vol. 10.1 fl (6.2-12.0); Monocyte# 0.59 X10^3/uL; Monocyte% 5.9 % (0-10); NRBC Flagged by Analyzer 0 % (0-5); Neutrophil # 7.49 X10^3/uL (2.7-7.7); Neutrophil % 75.1 % (47-70); Platelet Count 223 K/mm3 (150-450); RBC Distribution Width CV 11.9 % (11.6-14.6); RBC Distribution Width SD 41.1 fl (35.1-43.9); Red Blood Count 4.35 M/mm3 (4.2-5.4)
[2021-06-24 13:31] LABS: ALB/GLOB Ratio 0.8 RATIO (0.9-2.4); AST(SGOT) 23 U/L (15-37); Alanine Aminotransfer ALT/SGPT 24 U/L (13-56); Albumin, Serum 3.6 g/dL (3.2-5.0); Alkaline Phosphatase 61 U/L (45-117); Anion Gap 5 (5-15); BUN 7 mg/dL (7-18); BUN/Creat Ratio 10.5 RATIO (10-20); Calcium,Total 8.7 mg/dL (8.5-10.1); Chloride 103 mmol/L (98-107); Creatinine, Serum 0.67 mg/dL (0.55-1.02); EST Glomerular Filtration Rate 112 mL/min (>60); Est Glom Filt Rate - Afr Amer 136 mL/min (>60); Estimated Creatinine Clearance 119.47 ml/min; Globulin 4.4 g/dL (2.2-4.2); Glucose 89 mg/dL (74-106); Potassium 3.2 mmol/L (3.5-5.1); Sodium Level 138 mmol/L (136-145)
[2021-06-24 13:41] LABS: Internal QC Validated? YES +Cl - CLEAR BKGD; Pregnancy, Serum, hCG Quali. NEGATIVE Negative
--- NOTE | 2021-06-24 13:45 | ED.RN ---
weigh and charge worker consulted about dr orders for suicidal precautions. weigh and charge worker instructed me that we are waiting for social services assistant to evaluate pt. hro in dye and social work is in with patient at this time. ernestina denson rn [id number]
[2021-06-24 13:51] LABS: Acetaminophen (Tylenol) Level < 2.0 ug/mL (10.0-30.0); Salicylate < 1.7 mg/dL (2.8-20.0)
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
[2021-06-24] MEDS: Ziprasidone HCl 20 MG Capsule PO (14:59)
[2021-06-24] MEDS: Potassium Chloride Oral Tablet 20 MEQ PO (14:59)
--- NOTE | 2021-06-24 15:32 | CM.ED ---
Social Work Collaborating with officer Ángel Edward, able to obtain last name and address for Arlou. Raudel Lea [address] [place] [address] [phone] . Telephone call to industrial controls technician [facility] children services worker, Diane. This mental health social worker communicating safety concerns for minor children Heriberto [place] and Dave [place]. Was able to obtain date of for Heriberto per chart review, unable to obtain date of for [place]. This mental health social worker also communicating nature of patient ED visit today. Per police report children were not in the home when patient reported to attempt suicide and were with Arlou per patient report. This mental health social worker communicating that patient was not forth coming with information in regards to Arlou. Diane reports to be familiar with Arlou from prior children services cases. This mental health social worker communicating patient positive tox screen for meth and marijuana on 06/21/2021 and that current tox screen has not been able to be obtained. Diane to contact mine administrator supervisor and will call this mental health social worker back with any questions. This mental health social worker to contact children services with any further information. Heather PARK, SKYLER
--- NOTE | 2021-06-24 17:43 | CPS ---
pt has been aggressive and refusing the PCR nasal swab
[2021-06-24 18:59] LABS: Amphetamine Urine VISTA POSITIVE (<1000 ng/mL); Barbiturate Urine VISTA NEGATIVE (< 200 ng/mL); Benzodiazepine Urine VISTA NEGATIVE (< 200 ng/mL); Cocaine Urine VISTA NEGATIVE (< 300 ng/mL); Ecstacy Urine VISTA POSITIVE (< 500 ng/mL); Methadone Urine VISTA NEGATIVE (< 300 ng/mL); PCP Urine VISTA NEGATIVE (< 25 ng/mL); THC Urine VISTA POSITIVE (< 50 ng/mL); Vista UDS pH Range 6
--- NOTE | 2021-06-24 19:13 | CM.ED ---
Social Work Telephone call to [facility]ka Sl[facility], accepting COVID-19 positive patients on a case by case basis. Referral faxed. [facility]ka Slater confirms to accept patient insurance. Will continue to follow. Heather PARK, SKYLER
--- NOTE | 2021-06-24 20:19 | CM.ED ---
Social Work Telephone call from [facility] Slater, chrissie. Admissions confirms to have received referral and we will review it now. Will continue to follow. Heather PARK, SKYLER
[2021-06-24 20:30] LABS: Acetaminophen (Tylenol) Level < 2.0 ug/mL (10.0-30.0)
--- NOTE | 2021-06-24 22:16 | CM.ED ---
Social Work Telephone call to Yessy Knapp. Patient case continues to be pending. This director of social services provided Yessy with contact information for main ED as end of social work shift after 22:30. Medical team updated. Heather PARK, SKYLER
--- NOTE | 2021-06-24 23:02 | ED.RN ---
[facility] CALLS AND REPORTS THEY ARE DECLINING THE PATIENT BECAUSE THE COVID FLOOR IS CLOSED.
[2021-06-25] VITALS (13 sets, daily range): BP systolic 100–122; BP diastolic 68–79; PULSE 65–113; RESP 15–22; TEMP 36.8; O2SAT 94–98
--- NOTE | 2021-06-25 00:42 | ED.RN ---
[facility] contacted regarding patients negative covid PCR test, they asked for us to fax it. They then called back stating the patient still had to quarantine for 5 days and they will contact us on Saturday stating if they can take the patient.
--- NOTE | 2021-06-25 00:59 | ED.RN ---
Patient reports onset of COVID symptoms began with cough, on Saturday, JUNE 21.
--- NOTE | 2021-06-25 08:09 | NURSING ---
[id number] PAGED CRISIS [id number] PAGED CRISIS
--- NOTE | 2021-06-25 08:14 | ED.RN ---
lab called with a missed lab result of a pcr being negative but it actually was pos
--- NOTE | 2021-06-25 10:45 | ED.RN ---
RN at bedside because patient wants RN to speak with mother on the phone about what is going on. With patient's permission RN informs mother of yesterday and today's events. Patient getting agitated stating she wants to leave.
--- NOTE | 2021-06-25 10:46 | ED.RN ---
RN at bedside to administer medication. PT states she doesn't want to take it right now because it will make me sleepy and I'm trying to figure out what is going on with my children. RN agreeable that she can have until 1100 to make arrangements and then RN will return to administer medication.
--- NOTE | 2021-06-25 10:56 | ED.RN ---
per patient okay to give information to biological mom helen roy.
[2021-06-25] MEDS: Ziprasidone HCl 20 MG Capsule PO (11:03)
--- NOTE | 2021-06-25 11:04 | ED.RN ---
RN at bedside to administer PO geodon and transdermal nicotene patch ass agreed between RN and patient prior. PT tells RN to hold on she is still working on her children information. RN tells patient that we agreed at 1100 she would take the medication. PT starts yelling at nursing saying I don't like your attitude you are giving me lip. RN reminds patient of verbal agreement to take medication at 1100. PT then starts screaming louder I don't want you to be my nurse because you are rude and lippy. If you say one more thing to me I will. RN tells patient that it's fine she doesn't want medication and goes to exit room. Then PT states just give me the fucking medication
[2021-06-26] VITALS (11 sets, daily range): BP systolic 103–128; BP diastolic 70–76; PULSE 80–99; RESP 14–18; TEMP 36.4–36.7; O2SAT 96–98
--- NOTE | 2021-06-26 10:03 | CM.ED ---
Social Work Chart reviewed. Per nursing note patient was declined [facility] due to not having an open COVID-19 unit at the time, but [facility] reported to have been able to review patient chart on Saturday again for possible admission as patient would be 5 days out. Telephone call to Valeria Munroe. This social work lecturer communicating above information. Valeria reports I don't have anything on that patient. Valeria request for clinical information to be faxed again. Clinical information faxed. Will continue to follow. Heather PARK, SKYLER
[2021-06-26] MEDS: LORazepam 1 MG Tablet PO (11:06)
--- NOTE | 2021-06-26 13:34 | CM.ED ---
Social Work Voicemail received from [facility]. [facility] request a return phone call. Telephone call to [facility], no answer. voicemail left requesting return phone call. Will continue to following. Heather PARK, SKYLER
--- NOTE | 2021-06-26 14:32 | CM.ED ---
Social Work Telephone call to [place] [facility], intake. not able to accept due to COVID-19 positive. This psychotherapist social worker clarifying that Saturday was told that [facility] is considering COVID positive. At this time intake reports that it has been a few weeks since [facility] was considering COVID-19 positive patients. This psychotherapist social worker request for communication to be clarified at [facility] as it was understood by this psychotherapist social worker that COVID-19 positive patients were considered by the fiber glass worker on Saturday. Telephone call to Mirela CUADRA. Referral made. Mirela unable to confirm at this time that COVID-19 positive patients are accepted by [facility] but will look into this. Clinical information faxed as [facility] did accept a COVID-19 positive patient yesterday from this ED. Will continue to follow for inpatient psychiatric placement. Heather PARK, SKYLER
--- NOTE | 2021-06-26 15:30 | CM.ED ---
Social Work Patient request to speak with this social media content specialist. This social media content specialist met with patient in room. Patient remembering this social media content specialist from Saturday. Patient reports I am fine and inquires about discharge to home. This social media content specialist explaining continued [place] and plan for inpatient psychiatric placement. This social media content specialist explaining to patient that due to COVID-19 positive the options are limited for placement but placement is continuing to be the plan. Patient with a calm affect and voicing understanding. Support provided. Will continue to follow. Heather PARK, SKYLER
--- NOTE | 2021-06-26 16:00 | ED.RN ---
PT WAS TAKEN TO RM [address] SO SHE COULD SHOWER AND PUT CLEAN GOWNS ON AND BED WAS ALSO CHANGED.
--- NOTE | 2021-06-26 16:51 | CM.ED ---
Social Work Telephone call to [facility], will not consider accepting patient until 5 days out from test. Patient was positive on 06/24/2021 and the 5th day would be 06/28/2021. Will continue to follow. Heather PARK, SKYLER
--- NOTE | 2021-06-26 17:27 | CM.ED ---
Social Work Was brought to this social workers attention that patient also had a positive COVID-19 test on 06/21/21, putting patient 5th day on 06/25/2021. Telephone call to Mirela CUADRA. This addiction social worker updated Mirela on above information. COVID-19 test results from 06/21/2021 faxed. Will continue to follow. Heather PARK, SKYLER
--- NOTE | 2021-06-26 18:32 | CM.ED ---
Social Work Telephone call to [facility] to follow up on updated clinicals, Johnson in intake. Johnson reports to be able to accept patient tomorrow after 17:24. Per Johnson day one counts as day zero then 5 complete days after the test results would be 06/27/2021 17:24 for this patient. Johnson recommends sending referral again tomorrow after 17:24 Will continue to follow. Heather PARK, SKYLER
[2021-06-27] VITALS (16 sets, daily range): BP systolic 110–119; BP diastolic 72–81; PULSE 87–110; RESP 14–18; O2SAT 97–100
--- NOTE | 2021-06-27 09:15 | ED.RN ---
THIS NURSE CONTACTED ADMISSIONS AT [facility]. THEY ARE UNABLE TO ACCEPT THE PT UNTIL AFTER 1744 WHEN SHE IS 5 DAYS FROM POSITIVE COVID TEST. / IS COUNTED DAY ZERO
[2021-06-27] MEDS: LORazepam 1 MG Tablet PO (11:12)
--- NOTE | 2021-06-27 11:19 | ED.RN ---
pt informed by childrens' services that they have not heard from her children or their father. Officer Wagner gomez.
--- NOTE | 2021-06-27 13:07 | CM.ED ---
Addendum entered by Eun Sue 06/27/21 19:10: MELINA spoke to Johnson at [facility]. He said that patient's pink slip from Saturday was invalid as it did not have name of [facility] hospital on it. He said that a new pink slip must be produced and that would be valid and everyone does it. MELINA updated Vilma Robb regarding this situation. MELINA called [facility] and explained what the pink slip training stated in May. Johnson had his boss, Twyla, speak to this leader writer. She said that we could do a pink slip with the [facility] and [facility] name on it. He inquired if patient would sign voluntary. SW asked patient and she agreed to sign voluntary. SW then was advised that patient said that since she signed voluntary she could leave. MELINA advised patient and staff that she could not leave. Pauline slip (Application for Emergency Hospital admission) completed by Dr. Frost. Copy of pink slip faxed to [facility]. MELINA called johnson at [facility] regarding the pink slip. MELINA made determination to complete pink slip on this date, as the pink slip dated 06/24/21 was not valid as when written it did not have facility date and per Johnson and Twyla at [facility] the pink slip was not valid. Patient has been manic today with activities including calling 9-1-1, pressured speech, telling police she is being held hostage and not making safe decisions thus, it is imperative that patient be pink slipped on this date (as the previous pink slip was invalid) due to her being suicidal prior to this admission. MD Frost signed the pink slip. MELINA spoke to Nuha at [facility] who stated that facilities will not accept pink slip with both names on it. MELINA faxed pink slip to [facility]. MELINA called Johnson and updated him regarding pink slip. Patient asked if this leader writer wanted to see her children. MELINA met briefly with patient and mother. Mother was provided with phone number for [facility], per her request. Plan: [facility] Eun GALICIA Original Note: MELINA Note: MELINA called [facility] intake. They said that they needed 10 days from day 0 for covid positive patients. MELINA called Adrienne Sevilla, [facility] rep. She connected this leader writer to [facility] Intake Director Twyla. Twyla said that the 10 days from day 0 is for geriatric patient's.Twyla said to fax the referral. MELINA faxed the referral to [facility]. MELINA received call from Johnson at [facility]. Patient has been accepted at [facility] in their adult behavioral unit. Accepting is Anila Pena NP. Johnson said to call him at 5:30 pm to update if patient continues to remain asymptomatic. MELINA updated RN and general operations agent. MELINA received call from Kellie Brooks requesting call back [phone] . MELINA called Kellie Brooks back and left voice mail message. MELINA was advised by ROB Gibson that patient was reviewing the law regarding Application for Emergency Hospital Admission ([place]) . MELINA educted patient on pink slip. Patient then showed this leader writer pictures of her children. MELINA called Kellie Brooks. She said that the children were found in [place]. Kellie said that she had the cooler deliverer's department do a welfare check for patient. Kellie said that they are currently determining the plan for the children. Plan: [facility] for inpatient psych Eun GALICIA
--- NOTE | 2021-06-27 14:05 | ED.RN ---
VISITOR BROUGHT PT FOUND AND BEVERAGE. PT REQUESTED PURSE TO GIVE KEYS TO VISITOR. PURSE TAKEN TO PT, PT GAVE KEYS AND UNKNOWN AMOUNT OF MONEY TO VISITOR.
--- NOTE | 2021-06-27 17:49 | ED.RN ---
Called [facility] to update on pt remaining asymptomatic. Left message with intake nurse.
--- NOTE | 2021-06-27 19:06 | ED.RN ---
Report called to Alicia at [facility].
== END 2021-06-27 19:57 ==
PROVIDERS: Emergency Provider Physician Assistant; Visit Provider Physician Assistant
DX: T39.1X2A Poisoning by 4-Aminophenol derivatives, intentional self-harm, initial encounter (principal); F15.10 Other stimulant abuse, uncomplicated; F41.9 Anxiety disorder, unspecified; F12.10 Cannabis abuse, uncomplicated; F17.210 Nicotine dependence, cigarettes, uncomplicated; E87.6 Hypokalemia; U07.1 COVID-19
CPT/HCPCS: 80053; 80307; 80329; 82077; 84703; 85025; 87426; 87635; 99285; G0480; U0003; U0005

== ENCOUNTER → 2022-02-08 | Outpatient (CLI) | payer MEDICAID, SELFPAY ==
[2022-02-08 13:39] LABS: Absolute Lymphocyte Count 1.98 X10^3/uL (0.83-4.51); Absolute Neutrophil Count 5.4 X10^3/uL (2.0-7.7); Basophil# 0.04 X10^3/uL; Basophil% 0.5 % (0-1); Eosinophils% 1.3 % (0-5); Hematocrit 40.3 % (37-47); Hemoglobin 13.4 g/dL (12.0-15.0); Lymphocyte # 1.98 X10^3/ul (0.83-4.51); Lymphocyte % 24.8 % (19-41); Mean Corp Hgb Conc 33.3 g/dL (32-36); Mean Corpuscular Hgb 31.4 pg (27.0-32.0); Mean Corpuscular Volume 94.4 fL (81-99); Mean Platelet Vol. 9.9 fl (6.2-12.0); Monocyte# 0.47 X10^3/uL; Monocyte% 5.9 % (0-10); NRBC Flagged by Analyzer 0 % (0-5); Neutrophil # 5.36 X10^3/uL (2.7-7.7); Neutrophil % 67.2 % (47-70); Platelet Count 342 K/mm3 (150-450); RBC Distribution Width CV 11.9 % (11.6-14.6); RBC Distribution Width SD 41.2 fl (35.1-43.9); Red Blood Count 4.27 M/mm3 (4.2-5.4)
[2022-02-08 13:56] LABS: Hemoglobin A1c 5.2 % (3.8-5.6)
[2022-02-08 14:07] LABS: Vitamin B12 551 pg/mL (211-911); Vitamin D,25 Hydroxy 36.7 ng/mL
[2022-02-08 14:17] LABS: ALB/GLOB Ratio 1.1 RATIO (0.9-2.4); AST(SGOT) 13 U/L (15-37); Alanine Aminotransfer ALT/SGPT 18 U/L (13-56); Albumin, Serum 4.1 g/dL (3.2-5.0); Alkaline Phosphatase 71 U/L (45-117); Anion Gap 8 (5-15); BUN 20 mg/dL (7-18); Calcium,Total 8.9 mg/dL (8.5-10.1); Chloride 103 mmol/L (98-107); Cholesterol 138 mg/dL (200); Creatinine, Serum 0.77 mg/dL (0.55-1.02); EST Glomerular Filtration Rate 95 mL/min (>60); Est Glom Filt Rate - Afr Amer 115 mL/min (>60); Globulin 3.8 g/dL (2.2-4.2); Glucose 93 mg/dL (74-106); High Density Lipoprotein 44 mg/dL; Potassium 3.7 mmol/L (3.5-5.1); Protein, Total 7.9 g/dL (6.4-8.2); Sodium Level 140 mmol/L (136-145); T4 Free Direct 0.94 ng/dL (0.76-1.46); Thyroid Stim Hormone (TSH) 0.85 uIU/mL (0.358-3.74); Triglycerides 66 mg/dL; Very Low Density Lipoprotein 13 mg/dL (5-40)
== END | disposition home or self-care (01) ==
LOC: LAB 12:12
PROVIDERS: Referring Provider Registered Nurse; Visit Provider Registered Nurse
DX: F41.1 Generalized anxiety disorder (principal); F31.81 Bipolar II disorder; F43.12 Post-traumatic stress disorder, chronic
CPT/HCPCS: 36415; 80053; 80061; 82306; 82607; 82746; 83036; 84439; 84443; 85025

== ENCOUNTER → 2022-05-31 | Outpatient (CLI) | payer MEDICAID, SELFPAY ==
[2022-05-31 17:10] LABS: Absolute Lymphocyte Count 2.06 X10^3/uL (0.83-4.51); Absolute Neutrophil Count 5.7 X10^3/uL (2.0-7.7); Basophil# 0.03 X10^3/uL; Basophil% 0.3 % (0-1); Eosinophils% 1.2 % (0-5); Hematocrit 38.7 % (37-47); Hemoglobin 13.3 g/dL (12.0-15.0); Lymphocyte # 2.06 X10^3/ul (0.83-4.51); Lymphocyte % 23.9 % (19-41); Mean Corp Hgb Conc 34.4 g/dL (32-36); Mean Corpuscular Hgb 31.4 pg (27.0-32.0); Mean Corpuscular Volume 91.5 fL (81-99); Mean Platelet Vol. 10.4 fl (6.2-12.0); Monocyte# 0.66 X10^3/uL; Monocyte% 7.7 % (0-10); NRBC Flagged by Analyzer 0 % (0-5); Neutrophil # 5.74 X10^3/uL (2.7-7.7); Neutrophil % 66.6 % (47-70); Platelet Count 290 K/mm3 (150-450); RBC Distribution Width CV 12.1 % (11.6-14.6); RBC Distribution Width SD 40.6 fl (35.1-43.9); Red Blood Count 4.23 M/mm3 (4.2-5.4); White Blood Count 8.6 K/mm3 (4.4-11.0)
[2022-05-31 18:35] LABS: HIV - WCH Non-Reactive (Nonreactive); Hepatitis B Surface Antigen Non-Reactive (Nonreactive); Hepatitis C Antibody Non-Reactive (Nonreactive); Rubella IgG Equiv (Nonreactive); Syphilis Antibodies Non-reactive
[2022-06-02 14:51] LABS: V-Zoster IgG (Immunity) < 135 index (Immune >165)
[2022-06-05 17:16] LABS: HPV APTIMA, High Risk Negative (Negative)
== END | disposition home or self-care (01) ==
LOC: WOBLAB 16:08
PROVIDERS: Visit Provider Obstetrics & Gynecology
DX: Z34.81 Encounter for supervision of other normal pregnancy, first trimester (principal)
CPT/HCPCS: 36415; 85025; 86703; 86762; 86780; 86787; 86803; 87086; 87088; 87340; 87624; 88175; G0145

== ENCOUNTER → 2022-06-04 | Outpatient (CLI) | payer MEDICAID, SELFPAY | END | disposition home or self-care (01) | PROVIDERS: Referring Provider Obstetrics & Gynecology; Visit Provider Obstetrics & Gynecology | DX: R69 Illness, unspecified (principal) ==

== ENCOUNTER → 2022-06-06 | Outpatient (CLI) | payer MEDICAID, SELFPAY ==
--- NOTE | 2022-06-06 11:08 | US_ITS ---
STUDY: ULTRASOUND BREAST - RIGHT REASON FOR EXAM: Female, 26 years old. Right breast lump. Patient is . TECHNIQUE: Axial and longitudinal images of the RIGHT breast were performed with a high resolution ultrasound transducer. # OF IMAGES: 17 COMPARISON: None. FINDINGS: RIGHT Breast: The upper half of the right breast was examined with ultrasound. There is dense fibroglandular tissue. No sonographic abnormality is seen. US/Breast Limited Unilateral IMPRESSION: No sonographic abnormality is seen. ASSESSMENT CATEGORY: BIRADS Category 1: Negative. A letter regarding these results will be sent to the patient by the facility within 30 days. Electronically Signed: Curt Camejo MD at 12:47 EST ,
== END | disposition home or self-care (01) ==
LOC: OPUS 11:03
PROVIDERS: Referring Provider Obstetrics & Gynecology; Visit Provider Obstetrics & Gynecology
DX: N63.10 Unspecified lump in the right breast, unspecified quadrant (principal)
CPT/HCPCS: 76642

== ENCOUNTER 2022-06-26 21:58 | Emergency (ER) | payer MEDICAID, SELFPAY ==
[2022-06-26 21:59] VITALS: BP 131/77; PULSE 125; RESP 16; TEMP 36.1; O2SAT 98; BMI 27.6
--- NOTE | 2022-06-26 22:39 | ED.VIS.FEGU ---
HPI HPI - Female History of Present Illness Chief Complaint: Vag Bld, Preg Detail of Chief Complaint: First trimester with vaginal bleeding Informant: patient Pain Onset: Days Context: Sudden Onset Timing: Intermittent Quality: Positive for Cramping Location: Suprapubic (And pelvic) and - Current Severity: Mild Maximum Severity: Moderate Worsened by: - (Nothing septic) Relieved by: - (Nothing) Bleeding Issue: Positive for Vaginal bleeding (Has used 2 pads in the last 24 hours) Onset: Days Associated Symptoms Associated Symptoms: Positive for Frequency; Negative for Dysuria, Urgency or Hematuria Last known menstrual period: 10 weeks gestation by ultrasound performed at [facility] on Sat Test: Positive Sexually: Positive for Active Control: No control P: 3 Ab: 3 (Miscarriage 3, 5 and 6) Narrative Narrative: Patient is a 26-year-old G7, P3 AB 3 female with Rh+ blood who presents with vaginal bleeding. She had an ultrasound performed on Saturday at [facility] that revealed chorionic bleed. She denies fever, chills night sweats. Denies orthostatic symptoms. She denies vomiting or diarrhea. She denies dysuria or hematuria. She does report frequency. She denies history of trauma. 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 Prior similar symptoms: Yes Recent Illness/Hospitalization: Yes [facility] Medical History Anxiety Hypoglycemia Manic depression Home Medications buspirone 15 mg tablet 15 mg PO TID 06/26/22 [History Last Taken Unknown] duloxetine 60 mg capsule,delayed release 80 mg PO DAILY 06/26/22 [History Last Taken Unknown] lamotrigine 25 mg tablet 25 mg PO DAILY 06/26/22 [History Last Taken Unknown] promethazine 12.5 mg tablet 12.5 mg PO Q4H PRN PRN Nausea 06/26/22 [History Last Taken Unknown] trazodone 150 mg tablet 150 mg PO DAILY 06/26/22 [History Last Taken Unknown] Allergy/AdvReac Type Severity Reaction Status Date / Time acetaminophen [From Vicodin] Allergy NEEDS Verified 06/26/22 22:01 FOLLOW-UP asparagus Allergy Hives Verified 06/26/22 22:01 avocado Allergy Hives Verified 06/26/22 22:01 Bleach (Sodium Hypochlorite) Allergy Hives Verified 06/26/22 22:01 hydrocodone [From Vicodin] Allergy NEEDS Verified 06/26/22 22:01 FOLLOW-UP gregorio Allergy Hives Verified 06/26/22 22:01 ondansetron [From Zofran] Allergy Nausea/Vom/ Verified 06/26/22 22:01 Diarrhea Social History (Updated 06/26/22 @ 22:[address] Jose Luis Frost MD) household members: significant other and children Smoking Status: Current every day smoker tobacco type: cigarettes substance use type: does not use ROS ROS ED Constitutional Constitutional ED: Denies chills, fever(s), subjective or sweats Eyes Eyes: Denies blurry vision, change in vision or diplopia ENT ENT ED: Denies ear pain, rhinorrhea or sore throat Cardiovascular Cardiovascular: Denies chest pain, palpitations or racing heartbeat Respiratory/Chest Respiratory/Chest: Denies cough, dyspnea or dyspnea on exertion Gastrointestinal Gastrointestinal: Reports abdominal pain and nausea; Denies constipation, diarrhea, melena or vomiting Genitourinary Genitourinary ED: Reports urinary frequency; Denies dysuria or hematuria Musculoskeletal Musculoskeletal: Denies arthralgias, myalgias or neck pain Neurologic Neurologic: Denies headache(s), paresthesias or weakness Psychiatric Psychiatric: Reports anxiety Hematologic/Lymphatic Hematologic/Lymphatic: Denies easy bleeding or easy bruising EXAM Physical Exam Const Vital Signs: 06/26/22 21:59 Temperature 97 F L Temperature Source Temporal Pulse Rate 125 H Respiratory Rate 16 Blood Pressure 131/77 H Blood Pressure Mean 95 Pulse Ox 98 Oxygen Delivery Method Room Air Positive well nourished and well developed Constitutional Narrative: As I entered the room patient is on her knees holding her abdomen. She is complaining of cramping pain. General Appearance ED: well developed and pallor HEENT Reports TM's clear and moist mucous membranes HEENT Narrative: Head is atraumatic normocephalic. Posterior pharynx is normal. Tympanic Membrane ED: Yes TM's clear Eyes PERRL and EOMs intact bilaterally General Eye ED: Negative for pale conjunctiva or scleral icterus Neck no lymphadenopathy, supple and no JVD Chest Wall inspection of chest normal and palpation of chest normal Resp normal respiratory effort and clear to auscultation bilaterally Cardio regular rhythm, S1 normal heart sound, no murmurs and no JVD Rate: tachycardic GI soft to palpation, non-distended and no masses GI Narrative: She complains of pain in the suprapubic region. Auscultation: hypoactive bowel sounds Palpation: tender suprapubic Back/Spine no CVA tenderness Thoracic Spine / Upper Back: Negative for thoracic spinal tenderness Lumbar Spine / Lower Back: Negative for lumbar spinal tenderness Extremity normal to inspection and full ROM General Extremety ED: Negative for edema or tenderness General Extremity: Negative for edema Neuro oriented x3, CN's II-XII intact bilaterally and no sensory deficits noted Sensorium / Orientation: alert Psych mental status grossly normal Mood & Affect: anxious Skin no rashes or lesions noted and no wounds General Skin Exam: pallor; Negative for jaundice MDM MDM MDM Narrative Medical decision making narrative: Patient is tachycardic. Since she is tachycardic will obtain H&H to assess for anemia. heart tones were ordered. Will perform pelvic exam determine how much bleeding she has and if her os is open or closed. Will review records from [facility]. Ultrasound performed on June 24 at [facility] revealed a single live IUP 9 weeks 3 days. There was a small subchorionic bleed noted. Nurse was not able to appreciate heart tones. Transabdominal ultrasound was obtained. There is heart tones of 150. There is movement of the head and torso. There is no other significant abnormality noted on my exam. Pelvic exam was performed. Vaginal cervical mucosa appeared normal. There is no bleeding. The os is closed. The external os is consistent with a woman who has had multiple pregnancies. Discharge Plan Triage Chief Complaint: Vag Bld, Preg ED Provider: Jose Luis Frost Dx/Rx/DC Orders Clinical Impression: Threatened in first trimester, Pelvic pain, Subchorionic hemorrhage Instructions: ED Possible Miscarriage ... Prescriptions: No Action lamotrigine 25 mg tablet 25 mg PO DAILY Label Comments: TAKE 1 TABLET BY MOUTH ONCE A DAY FOR 14 DAYS. THEN TAKE 2 TABLETS BY MOUTH ONCE DAILY. trazodone 150 mg tablet 150 mg PO DAILY Label Comments: TAKE 1/2 TO 1 (ONE-HALF TO ONE) TABLET BY MOUTH AT BEDTIME NEEDED FOR SLEEP buspirone 15 mg tablet 15 mg PO TID Label Comments: TAKE 1 TABLET BY MOUTH THREE TIMES DAILY duloxetine 60 mg capsule,delayed release(DR/EC) 80 mg PO DAILY Label Comments: TAKE 1 CAPSULE BY MOUTH ONCE DAILY promethazine 12.5 mg tablet 12.5 mg PO Q4H PRN PRN (Reason: Nausea) Label Comments: TAKE 1 TABLET BY MOUTH EVERY 4 TO 6 HOURS NEEDED FOR NAUSEA Primary Care Provider: Care Physician,No Primary Referrals: Dunia Edward DO [Med Staff - Active Staff] - 3-5 Days if not improving Care Physician,No Primary [Primary Care Provider] - Disposition Disposition: Home, Self Care
== END 2022-06-26 23:35 | disposition home or self-care (01) ==
PROVIDERS: Emergency Provider Emergency Medicine; Visit Provider Emergency Medicine
DX: O20.0 Threatened abortion (principal); O09.41 Supervision of pregnancy with grand multiparity, first trimester; O26.21 Pregnancy care for patient with recurrent pregnancy loss, first trimester; O99.334 Smoking (tobacco) complicating childbirth; F17.210 Nicotine dependence, cigarettes, uncomplicated; Z3A.09 9 weeks gestation of pregnancy
CPT/HCPCS: 99282

== ENCOUNTER 2022-08-08 20:43 | Emergency (ER) | payer MEDICAID, SELFPAY ==
[2022-08-08 20:44] VITALS: BP 128/72; PULSE 89; RESP 16; TEMP 36.4; O2SAT 98; BMI 28.5
--- NOTE | 2022-08-08 22:07 | US_ITS ---
STUDY: SECOND AND THIRD TRIMESTER OBSTETRICAL ULTRASOUND - LIMITED REASON FOR EXAM: Female, 26 years old bleeding earlier today- has subsided. Vaginal pain currently . History of placental hemorrhage but is reportedly resolving. LMP: 04/21/2022. Established due date: 01/26/2023. Established gestational age: 15 weeks 4 days. PRIOR ULTRASOUND: None. TECHNIQUE: Transabdominal and transvaginal scanning. TECHNICAL QUALITY: Adequate. FINDINGS: There is a single intrauterine fetus. The fetus is in a breech presentation. There is demonstrated cardiac activity with a heart rate of 169 bpm. There is a normal amniotic fluid volume. The largest amniotic fluid pocket measures 3.8 x 3.0 cm. The placenta is posterior and low-lying, with the inferior tip of the placenta 1.8 cm from the internal os. No acute placental abruption is identified. A 14 x 11 x 17 mm ovoid anechoic avascular focus is noted within the central aspect of the placenta, consistent with a venous connelly. The cervix measures 4.8 cm in length. Cervix is closed. BIOMETRY: BPD: 3.33 cm: 16 weeks, 2 days HC: 12.98 cm: 16 weeks, 4 days AC: 10.6 cm: 16 weeks, 4 days FL: 1.95 cm: 15 weeks, 6 days CI: 80.28 FL/AC:18.38 FL/BPD: 58.56 HC/AC: 1.22 age by current US: 16 weeks, 2 days. [place] by current US: 01/21/2023. Estimated weight: 148 grams, +/- 22 grams, 79 percentile. OTHER: No ventriculomegaly is noted. Fluid is noted within the stomach. Scans of the maternal right adnexa demonstrate no abnormality. US/OB Limited With Biometrics IMPRESSION: Single intrauterine gestation demonstrating cardiac activity. Low-lying posterior placenta with the inferior tip of the placenta 1.8 cm from the internal os. No acute placental abruption identified. Electronically Signed: Fam Murray MD at 23:52 EDT ,
[2022-08-08] MEDS: Acetaminophen 500 MG Tablet 1000 MG PO (22:23)
[2022-08-08 22:28] LABS: Absolute Lymphocyte Count 2.17 X10^3/uL (0.83-4.51); Absolute Neutrophil Count 7.7 X10^3/uL (2.0-7.7); Basophil# 0.04 X10^3/uL; Basophil% 0.4 % (0-1); Eosinophils% 1.8 % (0-5); Hematocrit 34.5 % (37-47); Hemoglobin 11.5 g/dL (12.0-15.0); Lymphocyte # 2.17 X10^3/ul (0.83-4.51); Lymphocyte % 19.9 % (19-41); Mean Corp Hgb Conc 33.3 g/dL (32-36); Mean Corpuscular Hgb 31.1 pg (27.0-32.0); Mean Corpuscular Volume 93.2 fL (81-99); Mean Platelet Vol. 9.9 fl (6.2-12.0); Monocyte# 0.75 X10^3/uL; Monocyte% 6.9 % (0-10); NRBC Flagged by Analyzer 0 % (0-5); Neutrophil # 7.67 X10^3/uL (2.7-7.7); Neutrophil % 70.3 % (47-70); Platelet Count 250 K/mm3 (150-450); RBC Distribution Width CV 12.6 % (11.6-14.6); RBC Distribution Width SD 42.9 fl (35.1-43.9); White Blood Count 10.9 K/mm3 (4.4-11.0)
[2022-08-08 22:43] LABS: Anion Gap 5 (5-15); BUN 7 mg/dL (7-18); BUN/Creat Ratio 12.6 RATIO (10-20); Calcium,Total 8.8 mg/dL (8.5-10.1); Chloride 105 mmol/L (98-107); Creatinine, Serum 0.56 mg/dL (0.55-1.02); EST Glomerular Filtration Rate 138 mL/min (>60); Est Glom Filt Rate - Afr Amer 166 mL/min (>60); Estimated Creatinine Clearance 145.44 ml/min; Glucose 97 mg/dL (74-106); Potassium 3.8 mmol/L (3.5-5.1); Sodium Level 137 mmol/L (136-145)
[2022-08-08 23:00] LABS: hCG Titer Quant., Serum 8900 mIU/mL (1-3)
[2022-08-09 00:06] VITALS: PULSE 70; RESP 16; O2SAT 99
--- NOTE | 2022-08-09 00:09 | ED.VIS.FEGU ---
HPI HPI - Female History of Present Illness Chief Complaint: Vag Bld, Preg Narrative Narrative: Patient is a G6, P3 with 2 spontaneous abortions who is approximately 16 weeks . She states this morning she had brisk bright red bleeding from her vagina which slowed down and stopped during midday. She states as the bleeding slowed and stopped she was less concerned but then this evening she developed crampy lower abdominal pain similar nature to the last miscarriage she had and with that she is concerned and presents for evaluation [facility] Medical History Anxiety Hypoglycemia Manic depression Home Medications buspirone 15 mg tablet 15 mg PO TID 06/26/22 [History Last Taken Unknown] duloxetine 60 mg capsule,delayed release 80 mg PO DAILY 06/26/22 [History Last Taken Unknown] lamotrigine 25 mg tablet 25 mg PO DAILY 06/26/22 [History Last Taken Unknown] promethazine 12.5 mg tablet 12.5 mg PO Q4H PRN PRN Nausea 06/26/22 [History Last Taken Unknown] trazodone 150 mg tablet 150 mg PO DAILY 06/26/22 [History Last Taken Unknown] 08/08/22 [History Last Taken Unknown] Allergy/AdvReac Type Severity Reaction Status Date / Time acetaminophen [From Vicodin] Allergy NEEDS Verified 06/26/22 22:01 FOLLOW-UP asparagus Allergy Hives Verified 06/26/22 22:01 avocado Allergy Hives Verified 06/26/22 22:01 Bleach (Sodium Hypochlorite) Allergy Hives Verified 06/26/22 22:01 hydrocodone [From Vicodin] Allergy NEEDS Verified 06/26/22 22:01 FOLLOW-UP gregorio Allergy Hives Verified 06/26/22 22:01 ondansetron [From Zofran] Allergy Nausea/Vom/ Verified 06/26/22 22:01 Diarrhea Family History no significant family his Social History household members: significant other and children Smoking Status: Current every day smoker tobacco type: cigarettes and smokeless tobacco substance use type: does not use ROS ROS ED Constitutional Constitutional ED: Denies chills or fever(s) ENT ENT ED: Denies sore throat Cardiovascular Cardiovascular: Denies chest pain Respiratory/Chest Respiratory/Chest: Denies cough or dyspnea Gastrointestinal Gastrointestinal: Reports abdominal pain; Denies diarrhea, nausea or vomiting Genitourinary Genitourinary ED: Reports other Details: Positive vaginal bleeding ; Denies dysuria Musculoskeletal Musculoskeletal: Denies myalgias Integumentary Denies rash Neurologic Neurologic: Denies headache(s) Hematologic/Lymphatic Hematologic/Lymphatic: Denies easy bleeding or easy bruising EXAM Physical Exam Const Vital Signs: 08/08/22 20:44 Temperature 97.5 F L Temperature Source Temporal Pulse Rate 89 Respiratory Rate 16 Blood Pressure 128/72 H Blood Pressure Mean 90 Pulse Ox 98 Oxygen Delivery Method Room Air Positive well nourished and well developed General Appearance ED: well developed Eyes PERRL and EOMs intact bilaterally Neck supple Resp normal respiratory effort and clear to auscultation bilaterally Cardio regular rate and regular rhythm GI non-tender and non-distended GI Narrative: Abdomen is gravid with fundus consistent with reported gestational age Auscultation: normoactive bowel sounds Palpation: soft Narrative: Patient deferred Back/Spine no CVA tenderness Extremity normal to inspection Neuro oriented x3 and CN's II-XII intact bilaterally Sensorium / Orientation: alert Psych mental status grossly normal Skin no rashes or lesions noted MDM MDM MDM Narrative Medical decision making narrative: Patient presented to the ER with stable vitals and reported resolution of her bleeding around midday. However she then developed crampy lower abdominal pain and with concern for miscarriage as she has had this in the past a work-up was obtained which included an ultrasound. Patient's H&H is stable her blood type is O+ and therefore does not need RhoGAM. The ultrasound shows the cervix is closed and the fetus has a normal heart rate at 169 bpm. The patient does have a venous connelly which could have been the cause of her bleeding earlier today. On reevaluation she has no active bleeding pain is controlled and as work-up shows no anemia or thrombocytopenia and there is no active miscarriage ongoing at this time she is otherwise safe for discharge with MENTAL RETARDATION NURSE follow-up History & Record Review Discussion w/independent historian: Patient Lab Data Attestation: I reviewed the patient's lab results. Labs: Laboratory Results - last 24 hr 08/08/22 08/08/22 08/08/22 22:20 22:20 22:20 WBC 10.9 RBC 3.70 L Hgb 11.5 L Hct 34.5 L MCV 93.2 MCH 31.1 MCHC 33.3 RDW Std Deviation 42.9 RDW Coeff of Reva 12.6 Plt Count 250 MPV 9.9 Immature Gran % (Auto) 0.700 Neut % (Auto) 70.3 H Lymph % (Auto) 19.9 [place] % (Auto) 6.9 Eos % (Auto) 1.8 Baso % (Auto) 0.4 Absolute Neuts (auto) 7.7 Absolute Lymphs (auto) 2.17 Nucleated RBC % 0 Sodium 137 Potassium 3.8 Chloride 105 Carbon Dioxide 27.0 Anion Gap 5 BUN 7 Creatinine 0.56 Estim Creat Clear Calc 145.44 Est GFR (MDRD) Af Amer 166 Est GFR (MDRD) Non-Af 138 BUN/Creatinine Ratio 12.6 Glucose 97 Calcium 8.8 HCG, Quant 8900 H Radiography Diagnostic Testing: Clinical Impression(s) from Imaging Studies Obstetrics Ultrasound 08/08/22 22:07 IMPRESSION: Single intrauterine gestation demonstrating cardiac activity. Low-lying posterior placenta with the inferior tip of the placenta 1.8 cm from the internal os. No acute placental abruption identified. Electronically Signed: Fam Murray MD at 23:52 EDT , Discharge Plan Triage Chief Complaint: Vag Bld, Preg ED Provider: Preston Watters Dx/Rx/DC Orders Clinical Impression: Threatened miscarriage Instructions: ED Possible Miscarriage ... Prescriptions: No Action lamotrigine 25 mg tablet 25 mg PO DAILY Label Comments: TAKE 1 TABLET BY MOUTH ONCE A DAY FOR 14 DAYS. THEN TAKE 2 TABLETS BY MOUTH ONCE DAILY. trazodone 150 mg tablet 150 mg PO DAILY Label Comments: TAKE 1/2 TO 1 (ONE-HALF TO ONE) TABLET BY MOUTH AT BEDTIME NEEDED FOR SLEEP buspirone 15 mg tablet 15 mg PO TID Label Comments: TAKE 1 TABLET BY MOUTH THREE TIMES DAILY duloxetine 60 mg capsule,delayed release(DR/EC) 80 mg PO DAILY Label Comments: TAKE 1 CAPSULE BY MOUTH ONCE DAILY promethazine 12.5 mg tablet 12.5 mg PO Q4H PRN PRN (Reason: Nausea) Label Comments: TAKE 1 TABLET BY MOUTH EVERY 4 TO 6 HOURS NEEDED FOR NAUSEA Primary Care Provider: Care Physician,No Primary Referrals: Mayur Edward MD [Med Staff - Active Staff] - Care Physician,No Primary [Primary Care Provider] - Activity Restrictions/Additional Instructions: Your ultrasound shows your cervix is closed and your baby has a normal heart rate. Your bleeding was most likely from your placental venous connelly which is a normal accumulation of blood within the placenta. As you had some discomfort with bleeding this is classified as a threatened miscarriage. Please follow-up with your MENTAL RETARDATION NURSE for further evaluation and return to the ER should you have any further concerns Disposition Disposition: Home, Self Care
== END 2022-08-09 00:20 | disposition home or self-care (01) ==
PROVIDERS: Emergency Provider Emergency Medicine; Visit Provider Emergency Medicine
DX: O20.0 Threatened abortion (principal); F33.9 Major depressive disorder, recurrent, unspecified; O99.332 Smoking (tobacco) complicating pregnancy, second trimester; O99.342 Other mental disorders complicating pregnancy, second trimester; F17.210 Nicotine dependence, cigarettes, uncomplicated; F41.9 Anxiety disorder, unspecified; Z79.899 Other long term (current) drug therapy; Z3A.16 16 weeks gestation of pregnancy
CPT/HCPCS: 76817; 76816; 80048; 84702; 85025; 99283; A4216

== ENCOUNTER 2022-10-05 16:40 | Outpatient (CLI) | payer MEDICAID, SELFPAY ==
[2022-10-05 16:53] VITALS: BP 119/56; PULSE 103; PULSE 99; TEMP 36.5; O2SAT 97
[2022-10-05 17:11] VITALS: BMI 29.4
[2022-10-05 17:41] LABS: ROM Internal Control Test YES-OK TO RESULT pt. (Internal QC); ROM Patient Test Negative (Negative)
--- NOTE | 2022-10-07 08:59 | OB.TRI.PN ---
Progress Notes Date of Service: 10/05/22 Progress Note: Patient presents for triage evaluation secondary to decreased movement and pelvic pressure FHT: 140 Moderate variability reactive no decelerations category I tracing [place]: no regular Contractions Assessment and plan: threatened PTL reassuring FHT and no dilation Reactive NST, reassuring maternal and status patient discharged to home to follow-up as scheduled. See problem list details for additional plan information. Laboratory Studies: Laboratory Tests 10/05/22 Range/Units 17:10 Vag Amniotic Fld Detect Negative (Negative) Charges/Coding Procedures Urinary/Genital [id number]: [id number] non-stress test Interp
== END 2022-10-05 18:00 | disposition home or self-care (01) ==
LOC: WPOUT 16:44 → WP 16:45
PROVIDERS: Referring Provider Obstetrics & Gynecology; Visit Provider Obstetrics & Gynecology
DX: O36.8190 Decreased fetal movements, unspecified trimester, not applicable or unspecified (principal)
CPT/HCPCS: 59025; 59050; 84112; 99221; G0378

== ENCOUNTER → 2022-10-24 | Outpatient (CLI) | payer MEDICAID, SELFPAY ==
[2022-10-24 16:57] LABS: Hematocrit 34.1 % (37-47); Hemoglobin 11.1 g/dL (12.0-15.0); Mean Corp Hgb Conc 32.6 g/dL (32-36); Mean Corpuscular Hgb 30.2 pg (27.0-32.0); Mean Corpuscular Volume 92.9 fL (81-99); Mean Platelet Vol. 10.6 fl (6.2-12.0); Platelet Count 306 K/mm3 (150-450); RBC Distribution Width CV 12.6 % (11.6-14.6); RBC Distribution Width SD 42.8 fl (35.1-43.9); Red Blood Count 3.67 M/mm3 (4.2-5.4); White Blood Count 12.9 K/mm3 (4.4-11.0)
[2022-10-24 17:09] LABS: Glucose Challenge Gest 1H 50g 96 mg/dL (70-140)
[2022-10-24 18:12] LABS: Syphilis Antibodies Non-reactive
== END | disposition home or self-care (01) ==
LOC: WOBLAB 15:50
PROVIDERS: Visit Provider Obstetrics & Gynecology
DX: Z34.82 Encounter for supervision of other normal pregnancy, second trimester (principal)
CPT/HCPCS: 36415; 82950; 85027; 86780

== ENCOUNTER 2022-10-26 22:47 | Outpatient (CLI) | payer MEDICAID, SELFPAY ==
[2022-10-26 23:05] VITALS: BP 119/64; PULSE 93; TEMP 36.7
[2022-10-26 23:06] VITALS: PULSE 95; O2SAT 98
--- NOTE | 2022-10-27 08:28 | OB.TRI.HP_ITS ---
HPI - General General Date of Service: 10/26/22 HPI Narrative BOO VOGEL, is a 26 F who presents statues post fall [facility] Medical History Anxiety Hypoglycemia Manic depression Home Medications buspirone 15 mg tablet 15 mg PO TID 06/26/22 [History Last Taken Unknown] 1 tab NOTE DAILY 08/08/22 [History Last Taken Unknown] pyridoxine (vitamin B6) 50 mg tablet See Rx Instructions .Route .COMPLEX 10/05/22 [History Last Taken Unknown] Allergy/AdvReac Type Severity Reaction Status Date / Time asparagus Allergy Hives Verified 06/26/22 22:01 avocado Allergy Hives Verified 06/26/22 22:01 Bleach (Sodium Hypochlorite) Allergy Hives Verified 06/26/22 22:01 gregorio Allergy Hives Verified 06/26/22 22:01 pineapple Allergy Other Verified 10/26/22 23:14 acetaminophen [From Vicodin] AdvReac Other Verified 10/26/22 23:15 escitalopram [From Lexapro] AdvReac Other Verified 10/05/22 17:00 fluoxetine [From Prozac] AdvReac Other Verified 10/05/22 17:00 hydrocodone [From Vicodin] AdvReac Other Verified 10/26/22 23:15 Social History household members: significant other and children Smoking Status: Current every day smoker tobacco type: cigarettes and smokeless tobacco substance use type: does not use History Elective abortions Hx Para 2 Spontaneous abortions Hx # Term Pregnancies Ectopic pregnancies Hx # Pregnancies Multiple births # of living children NST FHR Rate Baby A Baseline: 130 Variability:: Moderate Accelerations:: 10 x 10 Decelerations:: None NST Reactive:: Yes Uterine Activity:: quiet Assessment & Plan (1) : PLAN: Called by nursing that patient status post fall, fall downstairs that patient admits after [id number] history friends made her come in after fall. Reported by nursing overall patient denies abdominal pain cramping or vaginal bleeding. Instructed nursing to admit for 4 hours of monitoring and IV fluid bolus LR 1 L and to run LR at 150 cc an hour until 4-hours of monitoring her up. Nursing states understanding and for once patient has discussed leaving AMA. Nursing called back with report that patient declines and refuses care plan listed above and wishes to leave AMA. Given precautions upon discharge AMA
--- NOTE | 2022-10-28 07:25 | NURSING ---
Patient left AMA 10-26-22 about 40 minutes after arrival. Patient stated that she did not want to come in but that work had made her. After receiving orders for IV fluids and monitoring patient requesting to leave AMA and a paper for work stating she was seen.
== END 2022-10-26 23:45 | disposition home or self-care (01) ==
LOC: WPOUT 22:55 → WP 22:57
PROVIDERS: Referring Provider Obstetrics & Gynecology; Visit Provider Obstetrics & Gynecology
DX: Z04.3 Encounter for examination and observation following other accident (principal); F31.9 Bipolar disorder, unspecified; O99.330 Smoking (tobacco) complicating pregnancy, unspecified trimester; F17.210 Nicotine dependence, cigarettes, uncomplicated; F17.220 Nicotine dependence, chewing tobacco, uncomplicated; O99.340 Other mental disorders complicating pregnancy, unspecified trimester; F41.9 Anxiety disorder, unspecified; Z79.899 Other long term (current) drug therapy; Z3A.00 Weeks of gestation of pregnancy not specified
CPT/HCPCS: 59025; 59050; 99221; G0378

== ENCOUNTER 2022-11-17 13:30 | Outpatient (CLI) | payer MEDICAID, SELFPAY ==
[2022-11-17 13:39] VITALS: TEMP 36.6
[2022-11-17] MEDS: Lactated Ringers 1,000 ML 999 ML IV (13:40)
[2022-11-17 13:44] VITALS: BP 116/62; PULSE 94
[2022-11-17 13:46] VITALS: PULSE 105; O2SAT 96
[2022-11-17 13:50] VITALS: BMI 30.2
[2022-11-17 14:22] LABS: Mucous, Urine 0 SEEN /hpf (<or=2+); Red Blood Cells-Urine 0 SEEN /hpf (0-5)
[2022-11-17 14:27] LABS: Color, Urine Yellow (Yellow); Glucose, Dipstick Normal (Normal); Ketone-Dipstick Negative (Negative); Leukocyte Esterase-Dipstick 100 /ul (Negative); Nitrite-Dipstick Negative (Negative); Occult Blood-Urine Negative /ul (Negative); Protein-Dipstick 15 mg/dl (Negative); Urine Bilirubin Dipstick Negative (Negative); Urine Clarity Sl. Cloudy (Clear); Urine Urobilinogen 1 mg/dl (Normal); Urine pH 6.5 (5.0 - 8.0)
[2022-11-17 14:43] LABS: Bacteria 1+ /hpf (None Seen); Squamous Epithelial Cells - UA 5-10 SEEN /hpf (5-10); White Blood Cells 5-10 SEEN /hpf (0-5)
--- NOTE | 2022-11-21 14:43 | OB.TRI.NOTE ---
HPI - General General Date of Service: 11/17/22 HPI Narrative BOO VOGEL, is a 26 F who presents with cramping PFSH PFS Medical History Anxiety Hypoglycemia Manic depression Home Medications buspirone 15 mg tablet 15 mg PO TID 06/26/22 [History Last Taken 11/17/22] 1 tab NOTE DAILY 08/08/22 [History Last Taken 11/17/22] pyridoxine (vitamin B6) 50 mg tablet See Rx Instructions .Route .COMPLEX 10/05/22 [History Last Taken 11/17/22] duloxetine 20 mg capsule,delayed release mg PO 11/17/22 [History Last Taken 11/17/22] lamotrigine 25 mg tablet mg 11/17/22 [History Last Taken 11/17/22] Allergy/AdvReac Type Severity Reaction Status Date / Time asparagus Allergy Hives Verified 11/17/22 13:46 avocado Allergy Hives Verified 11/17/22 13:46 Bleach (Sodium Hypochlorite) Allergy Hives Verified 11/17/22 13:46 gregorio Allergy Hives Verified 11/17/22 13:46 pineapple Allergy Other Verified 11/17/22 13:46 acetaminophen [From Vicodin] AdvReac Other Verified 11/17/22 13:46 escitalopram [From Lexapro] AdvReac Other Verified 11/17/22 13:46 fluoxetine [From Prozac] AdvReac Other Verified 11/17/22 13:46 hydrocodone [From Vicodin] AdvReac Other Verified 11/17/22 13:46 Social History household members: significant other and children Smoking Status: Current every day smoker tobacco type: cigarettes and smokeless tobacco substance use type: does not use History Elective abortions Hx Para 2 Spontaneous abortions Hx # Term Pregnancies Ectopic pregnancies Hx # Pregnancies Multiple births # of living children NST FHR Rate Baby A Baseline: 120 Variability:: Moderate Accelerations:: 10 x 10 Decelerations:: None NST Reactive:: Yes Uterine Activity:: quiet Assessment & Plan (1) : PLAN: Called by nursing patient arrived to triage with pelvic cramping. Nursing states overall appears comfortable and evaluation appears negative. Given orders for nursing for urine analysis and 1 L bolus of LR IV fluids. And given instructions nursing to check cervix. Called back by nursing after 1 L fluid bolus patient now feels resolved cramping, cervical exam no signs of labor. Okay to discharge home
== END 2022-11-17 15:40 | disposition home or self-care (01) ==
LOC: WPOUT 13:34 → WP 13:35
PROVIDERS: Referring Provider Obstetrics & Gynecology; Visit Provider Obstetrics & Gynecology
DX: O47.9 False labor, unspecified (principal); F33.9 Major depressive disorder, recurrent, unspecified; O99.330 Smoking (tobacco) complicating pregnancy, unspecified trimester; O99.340 Other mental disorders complicating pregnancy, unspecified trimester; F17.210 Nicotine dependence, cigarettes, uncomplicated; Z3A.00 Weeks of gestation of pregnancy not specified; Z79.899 Other long term (current) drug therapy
CPT/HCPCS: 96365; 96366; 59050; 81001; 87086; 87088; 99221; J7120; G0378

== ENCOUNTER 2022-11-29 17:15 | Outpatient (CLI) | payer MEDICAID, SELFPAY ==
[2022-11-29 17:28] VITALS: BP 118/65; PULSE 100; PULSE 111; TEMP 36.9; O2SAT 98
[2022-11-29 18:05] LABS: ROM Internal Control Test YES-OK TO RESULT pt. (Internal QC); ROM Patient Test Negative (Negative)
[2022-11-29 18:06] LABS: Record Kit Lot#, ROM+ K1374
--- NOTE | 2022-11-29 23:11 | OB.TRI.NOTE ---
HPI - General General Date of Service: 11/29/22 HPI Narrative BOO VOGEL, is a 26 F who presents with leakage of fluids and back pain PFSH PFS Medical History Anxiety Hypoglycemia Manic depression Home Medications buspirone 15 mg tablet 15 mg PO TID 06/26/22 [History Last Taken 11/29/22] 1 tab NOTE DAILY 08/08/22 [History Last Taken 11/17/22] pyridoxine (vitamin B6) 50 mg tablet See Rx Instructions .Route .COMPLEX 10/05/22 [History Last Taken 11/17/22] duloxetine 20 mg capsule,delayed release mg PO 11/17/22 [History Last Taken 11/17/22] lamotrigine 25 mg tablet 25 mg 11/17/22 [History Last Taken 11/29/22] Allergy/AdvReac Type Severity Reaction Status Date / Time asparagus Allergy Hives Verified 11/29/22 17:53 avocado Allergy Hives Verified 11/29/22 17:53 Bleach (Sodium Hypochlorite) Allergy Hives Verified 11/29/22 17:53 gregorio Allergy Hives Verified 11/29/22 17:53 pineapple Allergy Other Verified 11/29/22 17:53 acetaminophen [From Vicodin] AdvReac Other Verified 11/29/22 17:53 escitalopram [From Lexapro] AdvReac Other Verified 11/29/22 17:53 fluoxetine [From Prozac] AdvReac Other Verified 11/29/22 17:53 hydrocodone [From Vicodin] AdvReac Other Verified 11/29/22 17:53 Social History household members: significant other and children Smoking Status: Current every day smoker tobacco type: cigarettes and smokeless tobacco substance use type: does not use History Elective abortions Hx Para 2 Spontaneous abortions Hx # Term Pregnancies Ectopic pregnancies Hx # Pregnancies Multiple births # of living children NST FHR Rate Baby A Baseline: 120 Variability:: Moderate Accelerations:: 15 x 15 Decelerations:: None NST Reactive:: Yes Uterine Activity:: Quiet Assessment & Plan (1) : PLAN: Called by nursing patient arrives with leakage of fluid ROM negative. Patient also with decreased movement, NST reactive, reassuring. Discussed with nursing cervical exam, nursing discussed cervical exam with patient and patient initially declined and then felt she desired cervical exam, nursing reported to me closed cervix. All reassuring okay to discharge home with follow-up scheduled appointments
== END 2022-11-29 18:46 | disposition home or self-care (01) ==
LOC: WPOUT 17:22 → WP 17:23
PROVIDERS: Referring Provider Obstetrics & Gynecology; Visit Provider Obstetrics & Gynecology
DX: O42.90 Premature rupture of membranes, unspecified as to length of time between rupture and onset of labor, unspecified weeks of gestation (principal); F33.9 Major depressive disorder, recurrent, unspecified; O36.8190 Decreased fetal movements, unspecified trimester, not applicable or unspecified; O99.340 Other mental disorders complicating pregnancy, unspecified trimester; F41.9 Anxiety disorder, unspecified; Z3A.00 Weeks of gestation of pregnancy not specified; Z79.899 Other long term (current) drug therapy
CPT/HCPCS: 59025; 59050; 84112

== ENCOUNTER → 2023-01-04 | Outpatient (CLI) | payer MEDICAID, SELFPAY ==
[2023-01-04 16:55] LABS: Hematocrit 33.3 % (37-47); Hemoglobin 10.2 g/dL (12.0-15.0); Mean Corp Hgb Conc 30.6 g/dL (32-36); Mean Corpuscular Hgb 26.9 pg (27.0-32.0); Mean Corpuscular Volume 87.9 fL (81-99); Platelet Count 296 K/mm3 (150-450); RBC Distribution Width CV 13.3 % (11.6-14.6); Red Blood Count 3.79 M/mm3 (4.2-5.4); White Blood Count 12.4 K/mm3 (4.4-11.0)
== END | disposition home or self-care (01) ==
LOC: WOBLAB 15:56
PROVIDERS: Visit Provider Obstetrics & Gynecology
DX: Z34.83 Encounter for supervision of other normal pregnancy, third trimester (principal); Z36.85 Encounter for antenatal screening for Streptococcus B
CPT/HCPCS: 36415; 85027; 87081

== ENCOUNTER 2023-01-22 08:45 | Inpatient (IN) | payer MEDICAID, SELFPAY ==
[2023-01-22] VITALS (41 sets, daily range): BP systolic 108–143; BP diastolic 59–94; PULSE 77–121; RESP 16; TEMP 36.2–37.1; O2SAT 92–100; BMI 31.1
--- NOTE | 2023-01-22 08:34 | PCM.HP.BLA ---
History and Physical Date of Admission: 01/22/23 HPI: 27-year-old G6, P3 at 39/3 weeks, [place] 01/26/2023 by first trimester ultrasound, presenting for rule out labor. Patient called in this morning with loss mucous plug and decreased movement. Now reports normal movement. Is brandy irregularly. Denies leaking of fluid or vaginal bleeding. Denies headache or vision changes, chest pain or shortness of breath, nausea or vomiting, diarrhea constipation, fevers or chills. complicated by: History of heroin use, not currently using, bipolar disorder and borderline personality disorder on Lamictal and Cymbalta, poor care (patient had not been seen between October 24 and January 04). Missed appointment with Dr. Cardenas this OB/gyne history: G1: 40-week G2: First trimester SAB G3: 40-week G4: 40-week G5: First trimester SAB G6: Current Medical history: 1. Posttraumatic stress disorder, borderline personality disorder, bipolar disorder 2. History of drug abuse Surgical history: Denies Medications: 1. Cymbalta 2. Lamictal 3. vitamin Allergies: 1. Food allergies: Asparagus, avocado, bleach, gregorio, pineapple 2. Vicodin 3. Lexapro 4. Prozac Social history: Reports former methamphetamine and heroin use denies current. Denies alcohol use, reports tobacco use Review of system: Negative other than stated above Physical exam: Blood pressure 124/75 General: No acute distress HEENT: Normal cephalic/atraumatic Cardiorespiratory: No increased effort Abdomen: Soft, nontender Extremities minimal edema Neurologic: No focal deficits Musculoskeletal: Moves all extremities Cervical exam: 4 cm per RN heart rate: 140/moderate variability/+ accelerations/no decelerations [place]: Irregular Assessment/plan: 27-year-old G6, P3 at 39/3 weeks, [place] 01/26/2023 by first trimester ultrasound, presenting for rule out labor. complicated by: History of heroin use, not currently using, bipolar disorder and borderline personality disorder on Lamictal and Cymbalta, poor care (patient had not been seen between October 24 and January 04). Missed appointment with Dr. Cardenas this . ?Rule out labor. ? Patient now reporting movement, NST reactive ? GBS negative
[2023-01-22] MEDS: Lactated Ringers 1,000 ML 50 ML IV (09:25)
[2023-01-22] MEDS: Oxytocin 15 Units/NS 250ml 15 UNITS/250 ML IV.SOLN 2 UNITS IV (09:40)
[2023-01-22 09:46] LABS: Absolute Lymphocyte Count 1.96 X10^3/uL (0.83-4.51); Absolute Neutrophil Count 8.6 X10^3/uL (2.0-7.7); Basophil# 0.05 X10^3/uL; Basophil% 0.4 % (0-1); Eosinophil# 0.28 X10^3/uL; Eosinophils% 2.4 % (0-5); Hematocrit 32.6 % (37-47); Hemoglobin 10.2 g/dL (12.0-15.0); Lymphocyte # 1.96 X10^3/ul (0.83-4.51); Lymphocyte % 16.7 % (19-41); Mean Corp Hgb Conc 31.3 g/dL (32-36); Mean Corpuscular Hgb 26.6 pg (27.0-32.0); Mean Corpuscular Volume 85.1 fL (81-99); Mean Platelet Vol. 11.3 fl (6.2-12.0); Monocyte# 0.67 X10^3/uL; Monocyte% 5.7 % (0-10); NRBC Flagged by Analyzer 0 % (0-5); Neutrophil # 8.55 X10^3/uL (2.7-7.7); Neutrophil % 73.1 % (47-70); Platelet Count 257 K/mm3 (150-450); RBC Distribution Width SD 43.1 fl (35.1-43.9); Red Blood Count 3.83 M/mm3 (4.2-5.4); White Blood Count 11.7 K/mm3 (4.4-11.0)
[2023-01-22] MEDS: Acetaminophen 500 MG Tablet PO (10:37)
[2023-01-22] MEDS: LACTATED RINGERS 500 ML 999 ML IV ×2 (12:25→13:38)
[2023-01-22 12:45] LABS: Amphetamine Urine VISTA NEGATIVE (<1000 ng/mL); Barbiturate Urine VISTA NEGATIVE (< 200 ng/mL); Benzodiazepine Urine VISTA NEGATIVE (< 200 ng/mL); Cocaine Urine VISTA NEGATIVE (< 300 ng/mL); Ecstacy Urine VISTA NEGATIVE (< 500 ng/mL); Methadone Urine VISTA NEGATIVE (< 300 ng/mL); PCP Urine VISTA NEGATIVE (< 25 ng/mL); THC Urine VISTA NEGATIVE (< 50 ng/mL); Vista UDS pH Range 6
[2023-01-22] MEDS: fentaNYL-bupivacaine (epidural) 100 ML BAG EPIDURAL (13:01)
[2023-01-22] MEDS: Mag Hydrox/Al Hydrox/Simeth 30 ML UDC PO (14:41)
[2023-01-22 14:51] LABS: Syphilis Antibodies Non-reactive
--- NOTE | 2023-01-22 16:06 | EX.PCM.OBRPT ---
Maternal Data Information Final [place]: 01/26/23 Vaginal Delivery Operative Information Date of Procedure: 01/22/23 Pre-Operative Diagnosis: Hopper intrauterine Post-Operative Diagnosis: Hopper intrauterine Surgery / Procedure Performed: Spontaneous Vaginal Delivery Type of Anesthesia: Epidural Estimated Blood Loss: 300cc Findings Description of Procedure: Spontaneous vaginal delivery of viable infant male. No nuchal cord. Baby mom. Cord clamped and cut. Spontaneous delivery of placenta. No lacerations. A Gender: Male (1 minute): 8 (5 minute): 9 Delayed Cord Clamping: Yes Complication Complications: None
[2023-01-22] MEDS: Oxytocin 15 Units/NS 250ml 15 UNITS/250 ML IV.SOLN 83 UNITS IV (16:31)
[2023-01-22] MEDS: Acetaminophen 500 MG Tablet 1000 MG PO (23:21)
[2023-01-23] MEDS: Ibuprofen 600 MG Tablet PO ×2 (01:07→10:09)
[2023-01-23 03:20] VITALS: BP 116/74; PULSE 98; RESP 16; TEMP 36.5; O2SAT 97
[2023-01-23] MEDS: Acetaminophen 500 MG Tablet 1000 MG PO ×2 (05:21→15:01)
--- NOTE | 2023-01-23 07:14 | DCINST_ITS ---
Discharge Instructions Diet Discharge Diet: No restrictions Activity Discharge Activity: Return to Normal Activity and [address] Drive May resume sexual activity in: 4-6 weeks Weight Bearing Status: Weight bearing as tolerated Dressing / Incision Call your doctor if your incision/area has: Continuous Slow Oozing and Foul Smelling Discharge Call your doctor if you observe: Fever of 101 or Higher, Shortness of breath and Chest pain Follow Up Care Please Follow Up With: Mayur Edward MD When: 2 weeks Test Results: Test results from this visit will be discussed in further detail at your follow- up appointment, if applicable. Discharge Plan Admission Admit Date/Time: 01/22/23 08:45 Attending Provider: Dunia Edward Primary Care Provider: Care Physician,Ingris Primary Discharge Orders/Prescriptions Prescriptions: No Action 1 tab NOTE DAILY lamotrigine 25 mg tablet 25 mg PO Patient Comments: TAKE 1 TABLET BY MOUTH ONCE A DAY FOR 14 DAYS. THEN TAKE 2 TABLETS BY MOUTH ONCE DAILY. duloxetine 20 mg capsule,delayed release(DR/EC) 20 mg PO Patient Comments: TAKE 1 CAPSULES BY MOUTH ONCE DAILY Referrals / Follow Up: Care Physician,No Primary [Primary Care Provider] -
--- NOTE | 2023-01-23 07:14 | PN.OBGYN_ITS ---
Subjective Subjective No overnight complaint Objective Data Objective Data Vital Signs: Vital Signs Temp Pulse Resp BP Pulse Ox O2 Del Method 97.7 F L 98 16 116/74 97 Room Air 01/23/23 03:20 01/23/23 03:20 01/23/23 03:20 01/23/23 03:20 01/23/23 03:20 01/23/23 03:20 Oxygen Delivery Method Room Air Weight: 203 lb Body Mass Index (BMI) 31.1 Intake & Output: Intake and Output for Last 24 Hours 01/21/23 01/22/23 01/23/23 23:59 23:59 23:59 Intake Total 2713.84 / 2713.84 Output Total 1400 / 1400 Balance 1313.84 / 1313.84 Lab / Micro Data 01/22/23 09:25 Labs: Laboratory Results - last 24 hr 01/22/23 09:25: WBC 11.7 H, RBC 3.83 L, Hgb 10.2 L, Hct 32.6 L, MCV 85.1, MCH 26 .6 L, MCHC 31.3 L, RDW Std Deviation 43.1, RDW Coeff of Reva 14.0, Plt Count 257, MPV 11.3, Immature Gran % (Auto) 1.700 H, Neut % (Auto) 73.1 H, Lymph % (Auto) 16.7 L, [place] % (Auto) 5.7, Eos % (Auto) 2.4, Baso % (Auto) 0.4, Absolute Neuts (auto) 8.6 H, Absolute Lymphs (auto) 1.96, Nucleated RBC % 0, Syphilis Total Ab Non-reactive, Blood Type O POSITIVE, Antibody Screen NEGATIVE 01/22/23 11:45: Urine Opiates Screen NEGATIVE, Urine Methadone Screen NEGATIVE, Ur Barbiturates Screen NEGATIVE, Ur Phencyclidine Scrn NEGATIVE, Ur Amphetamines Screen NEGATIVE, MDMA (Ecstasy) Screen NEGATIVE, U Benzodiazepines Scrn NEGATIVE, Urine Cocaine Screen NEGATIVE, U Cannabinoids Screen NEGATIVE, Ur Drug Screen Comment Physical Exam Const alert, oriented x3, no apparent distress, average body habitus, healthy appearing and well nourished HEENT normocephalic and moist oral mucous membranes Eyes PERRL Neck full ROM Resp normal respiratory effort, no retractions and no use of accessory muscles GI GI Narrative: Soft, nontender, uterus firm and below umbilicus Extremity normal to inspection and full ROM Neuro moves all extremities and no focal motor deficits Psych mental status grossly normal, affect normal, speech normal and activity/motor behavior normal Assessment & Plan (1) Vaginal delivery: PLAN: day 1. Breast-feeding. Pain well controlled. Okay to discharge home today if okay with document management technician
[2023-01-23 08:10] VITALS: BP 117/75; PULSE 71; RESP 16; TEMP 36.2; O2SAT 98
[2023-01-23] MEDS: DULoxetine Hcl 20 MG Capsule PO (10:09)
[2023-01-23] MEDS: lamoTRIgine 25 MG Tablet PO (10:09)
[2023-01-23 12:53] VITALS: BP 118/63; PULSE 75; RESP 16; TEMP 36.4; O2SAT 99
--- NOTE | 2023-01-23 16:00 | CASEMGMT ---
Social Work Assessment Labor and Delivery Unit Patient Address:[address] [place] [address] [place] [address] Phone number: [phone] Date of Referral: 01/22/23 Time of Referral:? [id number] Referred By: Dunia Edward Date of Intervention: 01/23/23?? Time of Intervention:? 899, ongoing Reason for Referral:? Substance abuse Sw completed chart review and acknowledges social work consult due to maternal substance use.Sw presented to bedside and introduced self to mother of baby (RACHEL Bland) and her current significant other, Dennis Duarte. Sw explained reason for sw involvement, completed psychosocial assessment and provided literature for MOB regarding baby blues and depression/ anxiety. Sw had MOB complete [place] Depression Scale. Sw informed MOB of sw need to inform [facility] of baby arrival to ensure they are aware due to MOB currently having an open case with them. MOB expressed understanding, although she was also frustrated. History obtained from: medical records and mother of baby (PAXTON)??? Household composition: MOB stated that she is currently residing with her step father at address listed in chart. MOB stated that also currently residing with her is her significant other, Dennis . Patient's parent/guardian status:? PAXTON is currently , although she has been attempting for the past three years to get a divorce/ dissolution of marriage. MOB stated that the court is unable to find her current because he does not show up for court hearings. MOB stated that she was in treatment/ attends sobriety meetings at [facility] where she met the biological father of baby boy, Seth Verma. MOB states that he is aware of baby and has indicated that he wants nothing to do with the baby. Sw asked MOB if he has been informed that the baby has been born and MOB stated that he has. MOB states that she and her boyfriend, Dennis, have been together for 6 months and he is wanting to adopt baby. MOB stated that she plans to put Dennis's name on the certficiate. Sw explained to MOB that just by putting Dennis's name on certificate does not give him rights, and it is illegeal to do so because he is not the father of baby. - Sw explained to MOB that although her is not the biological father of the baby she still has to put his name there, and then he will need to report to the Child Support Enforcement Agency (CSEA) to provide DNA sample to prove that he is not the father, and then the [facility] will issue a new certificate. Nadya stated that if Dennis wants to formerly adopt baby, they will need to go to Probate court to start that process, which will also require the biological father (Seth Verma) to sign off on all of his paternal rights. PAXTON stated that Seth will be willing to do that. Medical History: PAXTON is 4, para 3- now 2. PAXTON received care during with [facility]. PAXTON however did not have any care from October 24- January 04. When questioned as to why she missed appointments, PAXTON stated that she had to cancel and reschedule appointments because she was working and her work schedule interfered with her apts. PAXTON delivered baby via vaginal delivery on 01/22/23. Baby boy, named Alex Coyle, was born weighing 8lb 13 oz and his apgars were 8 and 9 at one and five minutes of life respectfully. Baby will see integrated marketing intern Dr. Hoskins. Educational Status:?PAXTON states that she completed 11th grade and received her GED. Financial Status: PAXTON was previously employed at [employer] but states that she is no longer working there now that baby has been born. Dennis is employed at [employer]. Supplies:?PAXTON states that she has everything that she needs for baby, including: safe sleep space, car seat, clothes, diapers, wipes, and a breast pump. Childcare/Caregiver(s):? PAXTON states that she will be the primary caregiver to baby. Transportation:?PAXTON has her drivers license and reliable means of transportation. No barriers to transportation at this time. Programs/Agencies Involved: S- [employer], WIC, food stamps and PAXTON recently applied for suarez assistance. Children Services/Legal Issues:???PAXTON states that she currently has an open case with them. Her case workers name is Bhavana. PAXTON states that she has two other children: Heriberto Montague (: 11/20/15) and Charu Montague (: 12/23/14). PAXTON states that her first child, Markos was adopted and her other two children are currently place with Markos's adopted family. Sw informed MOB that sw will be calling [facility] to inform them that baby has been born. MOB expressed understanding. Behavioral Health Issues: ??Mental Health History:?Dennis states that he does not have a mental health history. MOB stated that she has been diagnosed with BiPolar, Borderline personality disorder, and PTSD. MOB stated that she also suffered from Depression when her two younger children were born. PAXTON stated that she is prescribed Lamectal and Cymbalta and she hopes that those will help her during this period. PAXTON completed the [place] depression scale and her score was a 5. Sw educated MOB on her score and provided support. Sw encouraged PAXTON to continue to talk with her natural supports on a regular basis. PAXTON states that she is connected to [facility] and has a peer support person there that she is able to reach out to anytime. ?? Substance Use History:?PAXTON has lengthily substance use history. MOB has history of use with: methamphetamines, heroin, bath salts, crack, cocaine. MOB states that she has been sober now for 16 months. MOB and baby urine toxicology screens were both negative for all substaces. Baby meconium results still pending. ? Family History:??MOB states that both of her parents have history of substance use. MOB states that her parents also have mental health history as well. ??? Drug Screens: MOB and baby urine toxicology screens were negative for substances. Baby meconium still pending. Family/Social Stressors:?PAXTON stressed regarding the certificate and how to fill it out properly. MOB states that she does not want her to be listed on the certificate at all and does not want the biological father listed either as he wants nothing to do with the baby. Information and directions provided at length. Support Systems: MOB states that her step dad, whom she resides with, is one of her biggest supports. MOB states that she has a peer support person who is also a big support for her as well. Depression/Shaken Baby/Safe Sleeping:?Sw educated MOB on signs and symptoms of baby blues and depression/ anxiety. Sw provided MOB with literature to review that explains appropriate coping skills. MOB expressed understanding. Sw educated MOB on shaken baby prevention and ABCs of safe sleep. MOB expressed understanding. Referral: Nadya spoke to Lidia on the hotline at [facility]. Nadya informed her of all information above, including baby has been born, maternal mental health and substance use history. Sw also informed Lidia that PAXTON has had a boyfriend for 6 months who is considering adopting baby boy, and that biological father does not want to be involved. Sw stated that MOB is breast feeding, has been appropriate at bedside states that she has everything she needs for baby. Lidia stated that at this time the assigned worker is not in the building. Sw informed Lidia that MOB and baby are to be discharged today around 4:30. Lidia expressed understanding and said that they will follow up with MOB at home. ASSESSMENT:? MOB with extensive substance use and mental health history. Biological father of baby not wanting to be involved at this time. [facility] has open involvement at this time. MOB to be discharged today with baby. [facility] plans to follow up with MOB once home from hospital either today or tomorrow. PLAN:? MOB to be discharged today when medically ready. Baby to be discharged with MOB. [facility] to follow up with MOB and baby. ?No other services requested or indicated. Renu Burnett, STATE PILOT, TEACHERS' AIDE
[2023-01-23 17:18] VITALS: PULSE 77; RESP 17; TEMP 36.3; O2SAT 99
[2023-01-23 17:21] VITALS: BP 120/73
--- NOTE | 2023-02-06 15:20 | CASEMGMT ---
Labor and Delivery Social Work Sw received mandated fiberglass boat finisher letter indicating that referral this social sciences lecturer made on 01/23/23 to [facility] was screened in and assigned to deli worker: Esme Zhao: [phone], ext. [phone] Renu Burnett, BUSINESS EXCELLENCE LEADER, SEAT COVER CUTTER
== END 2023-01-23 17:50 | disposition home or self-care (01) | DRG 560 ==
LOC: WPOUT 09:01 → WP 09:01
PROVIDERS: Admitting Provider Student in an Organized Health Care Education/Training Program; Referring Provider Student in an Organized Health Care Education/Training Program; Visit Provider Student in an Organized Health Care Education/Training Program
DX: O76 Abnormality in fetal heart rate and rhythm complicating labor and delivery (principal); Z37.0 Single live birth; O26.23 Pregnancy care for patient with recurrent pregnancy loss, third trimester; F17.290 Nicotine dependence, other tobacco product, uncomplicated; F31.9 Bipolar disorder, unspecified; F60.3 Borderline personality disorder; O99.334 Smoking (tobacco) complicating childbirth; F43.10 Post-traumatic stress disorder, unspecified; O99.344 Other mental disorders complicating childbirth; Z3A.39 39 weeks gestation of pregnancy; Z79.899 Other long term (current) drug therapy; Z86.59 Personal history of other mental and behavioral disorders
CPT/HCPCS: 59025; 59050; 80307; 85025; 86780; 86850; 86900; 86901; 99221; J7120; G0378

== ENCOUNTER 2023-07-24 13:14 | Emergency (ER) | payer MEDICAID, SELFPAY ==
[2023-07-24 13:15] VITALS: BP 120/71; PULSE 132; RESP 18; TEMP 36.9; O2SAT 98; BMI 29.4
[2023-07-24 13:33] VITALS: PULSE 111; RESP 18; O2SAT 96
[2023-07-24] MEDS: Ondansetron 4 MG/2 ML Vial IV (13:58)
[2023-07-24] MEDS: 0.9% Normal Saline (1000mL) 1,000 ML 1000 ML IV (13:58)
[2023-07-24 14:27] LABS: Anion Gap 8 (5-15); BUN 5 mg/dL (7-18); BUN/Creat Ratio 10.7 RATIO (10-20); Calcium,Total 8.4 mg/dL (8.5-10.1); Chloride 105 mmol/L (98-107); Creatinine, Serum 0.47 mg/dL (0.55-1.02); EST Glomerular Filtration Rate 166 mL/min (>60); Est Glom Filt Rate - Afr Amer 201 mL/min (>60); Estimated Creatinine Clearance 198.15 ml/min; Glucose 86 mg/dL (74-106); Potassium 3.5 mmol/L (3.5-5.1); Sodium Level 136 mmol/L (136-145)
[2023-07-24] MEDS: DiphenhydrAMINE 50 MG/ML Syringe 25 MG IV (14:45)
[2023-07-24] MEDS: Metoclopramide 10 MG/2 ML Vial 5 MG IV (14:46)
--- NOTE | 2023-07-24 14:56 | EX.ED.DYSGE1 ---
HPI History of Present Illness Chief Complaint: Nausea/Vomiting/Diarrhea Detail of Chief Complaint: Nausea, vomiting and diarrhea with flulike symptoms Informant: patient Onset/Context/Timing Onset: Days Context: Sudden Onset Timing: Continuous and Waxes and wanes Quality: Flulike symptoms, positive influenza Location: GI and respiratory Current Severity: Moderate Maximum Severity: Severe Worsened by: Influenza type B Relieved by: Nothing Associated Symptoms Associated Symptoms: Nausea and vomiting, first trimester Narrative Narrative: Patient is a 27-year-old female who who is , first trimester who presents with respiratory and GI symptoms consistent with flu. She was positive for type B. She does complain of headache, fever chills, myalgias arthralgias. She does have a cough. Cough is minimal. She has nausea, vomiting diarrhea. She cannot keep anything down. She does endorse thirst and dry mouth. She does endorse orthostatic symptoms. She does report severe headache consistent with her migraine. She does endorse decreased urine output. She denies dysuria, urgency or hematuria. She denies vaginal bleeding. Past medical history is remarkable for opiate addiction. I was unaware of this when I ordered the morphine. Patient declined the morphine since has been clean for 2 years. Prior similar symptoms: No Recent Illness/Hospitalization: Yes [facility] Medical History Anxiety Family history of hearing loss at age younger than 7 years Hypoglycemia Manic depression PTSD (post-traumatic stress disorder) Home Medications 1 tab NOTE DAILY 08/08/22 [History Last Taken 01/21/23] ondansetron 4 mg disintegrating tablet 4 mg PO Q8H PRN PRN Nausea #10 tabs 07/24/23 [Rx Last Taken Unknown] Allergy/AdvReac Type Severity Reaction Status Date / Time asparagus Allergy Hives Verified 07/24/23 13:15 avocado Allergy Hives Verified 07/24/23 13:15 Bleach (Sodium Hypochlorite) Allergy Hives Verified 07/24/23 13:15 gregorio Allergy Hives Verified 07/24/23 13:15 pineapple Allergy Other Verified 07/24/23 13:15 acetaminophen [From Vicodin] AdvReac Other Verified 07/24/23 13:15 escitalopram [From Lexapro] AdvReac Other Verified 07/24/23 13:15 fluoxetine [From Prozac] AdvReac Other Verified 07/24/23 13:15 hydrocodone [From Vicodin] AdvReac Other Verified 07/24/23 13:15 Social History household members: significant other and children Smoking Status: Current every day smoker tobacco type: cigarettes and smokeless tobacco substance use type: does not use ROS ROS ED Constitutional Constitutional ED: Reports chills, fever(s) and sweats Eyes Eyes: Denies blurry vision, change in vision or diplopia ENT ENT ED: Reports sore throat; Denies ear pain or rhinorrhea Cardiovascular Cardiovascular: Denies chest pain, orthopnea, palpitations or paroxysmal nocturnal dyspnea Respiratory/Chest Respiratory/Chest: Reports cough and dyspnea; Denies dyspnea on exertion, orthopnea, paroxysmal nocturnal dyspnea or sputum Gastrointestinal Gastrointestinal: Reports abdominal pain, diarrhea, nausea and vomiting; Denies constipation or melena Genitourinary Genitourinary ED: Denies dysuria, hematuria or urinary frequency Musculoskeletal Musculoskeletal: Reports arthralgias and myalgias; Denies neck pain Integumentary Denies rash Neurologic Neurologic: Reports headache(s); Denies paresthesias or weakness Hematologic/Lymphatic Hematologic/Lymphatic: Reports systems reviewed and no addt'l complaints, except as documented EXAM Physical Exam Const Vital Signs: 07/24/23 13:15 07/24/23 13:33 07/24/23 15:49 Temperature 98.4 F Temperature Source Temporal Pulse Rate 132 H 111 H 110 H Respiratory Rate 18 18 18 Blood Pressure 120/71 Blood Pressure Mean 87 Pulse Ox 98 96 96 Oxygen Delivery Method Room Air Room Air Positive well nourished and well developed General Appearance ED: well developed; Negative for cyanotic, diaphoretic or NAD HEENT Reports dry mucous membranes HEENT Narrative: Atraumatic normocephalic. Ears normal. Nares patent. Mucosa dry. Posterior pharynx unremarkable. Mouth ED: Yes dry mucous membranes Mouth: dry mucous membranes Eyes PERRL and EOMs intact bilaterally General Eye ED: Negative for pale conjunctiva or scleral icterus Neck no lymphadenopathy, supple and no JVD Chest Wall inspection of chest normal and palpation of chest normal Resp normal respiratory effort and clear to auscultation bilaterally Cardio regular rhythm, S1 normal heart sound, S2 normal heart sound and no murmurs Rate: tachycardic GI normal to inspection, nondistended, normoactive bowel sounds, non-distended and no masses; Negative for non-tender or hepatosplenomegaly Palpation: soft Back/Spine no CVA tenderness Thoracic Spine / Upper Back: Negative for thoracic spinal tenderness Lumbar Spine / Lower Back: Negative for lumbar spinal tenderness Extremity normal to inspection General Extremety ED: Negative for edema or tenderness General Extremity: Negative for edema Neuro oriented x3, CN's II-XII intact bilaterally and no sensory deficits noted Sensorium / Orientation: alert Psych mental status grossly normal Skin no rashes or lesions noted, no wounds and skin turgor normal General Skin Exam: Negative for jaundice MDM MDM MDM Narrative Medical decision making narrative: Patient's constellation of symptoms are due to influenza type B. BMP was obtained to assess electrolytes and renal function. IV fluids were ordered. Initially Zofran was ordered for nausea and vomiting. Since she requested medicine for headache and knowing she had influenza and morphine was ordered. I was made aware that she is a recovering addict. Benadryl and Reglan was subsequently ordered. UA was obtained to assess for ketones and infection. Lab Data Attestation: I reviewed the patient's lab results. Lab results narrative: Basic metabolic panel is normal. Labs: Laboratory Results - last 24 hr 07/24/23 07/24/23 14:01 15:09 Sodium 136 Potassium 3.5 Chloride 105 Carbon Dioxide 23.0 Anion Gap 8 BUN 5 L Creatinine 0.47 L Estim Creat Clear Calc 198.15 Est GFR (MDRD) Af Amer 201 Est GFR (MDRD) Non-Af 166 BUN/Creatinine Ratio 10.7 Glucose 86 Calcium 8.4 L Urine Color Yellow Urine Clarity Sl. Cloudy Urine pH 7.0 Ur Specific [place] 1.010 Urine Protein Negative Urine Glucose (UA) Normal Urine Ketones 50 H Urine Occult Blood Negative Urine Nitrite Negative Urine Bilirubin Negative Urine Urobilinogen Normal Ur Leukocyte Esterase 25 H Urine RBC 0 SEEN Urine WBC 0-5 SEEN Ur Squamous Epith Cells 0-5 SEEN Urine Bacteria 0 SEEN Urine Mucus 0 SEEN Treatment and Re-Evaluation :: Patient was reassessed at 1608. Her headache is resolved. Nausea and vomiting is resolved. She states she feels much better. Plan is to discharge to home Discharge Plan Triage Chief Complaint: Nausea/Vomiting/Diarrhea ED Provider: Kimber Frosto Dx/Rx/DC Orders Clinical Impression: Acute dehydration, Migraine without aura and responsive to treatment, Viral cephalgia, Type B influenza, First trimester , Ketosis, Nausea & vomiting Instructions: ED Dehydration (Adult), ED Influenza (Adult), ED Vomiting (Adult) Prescriptions: New ondansetron [ondansetron] 4 mg tablet,disintegrating 4 mg PO Q8H PRN PRN (Reason: Nausea) Qty: 10 0RF No Action 1 tab NOTE DAILY Primary Care Provider: Care Physician,No Primary Referrals: Que Tripp MD [Non-Staff] - 3-5 Days Care Physician,No Primary [Primary Care Provider] - Disposition Disposition: Home, Self Care
[2023-07-24 15:19] LABS: Bacteria 0 SEEN /hpf (None Seen); Mucous, Urine 0 SEEN /hpf (<or=2+); Red Blood Cells-Urine 0 SEEN /hpf (0-5)
[2023-07-24 15:27] LABS: Color, Urine Yellow (Yellow); Glucose, Dipstick Normal (Normal); Ketone-Dipstick 50 mg/dl (Negative); Leukocyte Esterase-Dipstick 25 /ul (Negative); Nitrite-Dipstick Negative (Negative); Occult Blood-Urine Negative /ul (Negative); Protein-Dipstick Negative (Negative); Urine Bilirubin Dipstick Negative (Negative); Urine Clarity Sl. Cloudy (Clear); Urine Urobilinogen Normal (Normal)
[2023-07-24 15:34] LABS: Squamous Epithelial Cells - UA 0-5 SEEN /hpf (5-10); White Blood Cells 0-5 SEEN /hpf (0-5)
[2023-07-24 15:49] VITALS: PULSE 110; RESP 18; O2SAT 96
[2023-07-24 16:25] VITALS: BP 120/74; PULSE 100; RESP 16; TEMP 37.2; O2SAT 98
== END 2023-07-24 16:28 | disposition home or self-care (01) ==
PROVIDERS: Emergency Provider Emergency Medicine; Visit Provider Emergency Medicine
DX: O99.511 Diseases of the respiratory system complicating pregnancy, first trimester (principal); F11.21 Opioid dependence, in remission; E88.89 Other specified metabolic disorders; O99.321 Drug use complicating pregnancy, first trimester; J10.1 Influenza due to other identified influenza virus with other respiratory manifestations; F17.210 Nicotine dependence, cigarettes, uncomplicated; F17.220 Nicotine dependence, chewing tobacco, uncomplicated; O99.351 Diseases of the nervous system complicating pregnancy, first trimester; G43.009 Migraine without aura, not intractable, without status migrainosus; O99.331 Smoking (tobacco) complicating pregnancy, first trimester; E86.0 Dehydration; O99.281 Endocrine, nutritional and metabolic diseases complicating pregnancy, first trimester; Z3A.00 Weeks of gestation of pregnancy not specified
CPT/HCPCS: 80048; 81001; 96361; 96374; 96375; 99283; J7030; A4216; J2405